=== PATIENT | female | born 1935 | race Caucasian/White ===

== ENCOUNTER 2016-09-03 13:58 | Inpatient (IN) ==
[2016-09-03] MEDS ORDERED: Ondansetron ODT 4 MG TAB.RAPDIS SL PRN (17:04)
[2016-09-03] MEDS ORDERED: Acetaminophen 325 MG TABLET PO PRN (17:04)
[2016-09-03] MEDS ORDERED: Naloxone 0.4 MG/ML INJ IVP PRN (17:04)
[2016-09-03] MEDS ORDERED: Albuterol 2.5 MG/3 ML NEBULIZER IH PRN (17:08)
[2016-09-03] MEDS ORDERED: Furosemide 40 MG/4 ML VIAL IVP SCH (17:15)
[2016-09-03] MEDS: Nicotine 21 MG PATCH.TD24 TD SCH (17:44)
--- NOTE | 2016-09-03 17:50 | Internal Med History&Physical ---
<Jolene Crabtree M - Last Filed: 09/03/16 23:02> Date of Encounter: 09/03/16 Time of Encounter: 18:00 Assessment and Plan (1) Acute CHF (congestive heart failure) Current visit: Yes Status: Acute Patient presenting with increasing shortness of breath over the last few days and BLE edema. Patient takes lasix PRN for edema at home. Last echo 10/14/15 showed Moderate LV systolic dysfunction and LVEF of 35-40%. CXR today showed moderate CHF. BNP elevated to 11,468. Continuous buckle wire inserter Lasix 40mg IVP BID cardiac diet with 1.5L fluid restriction strict I/Os Daily weights echocardiogram Cardiology consult. Qualifiers: Congestive heart failure type: systolic Qualified Code(s): I50.21 - Acute systolic (congestive) heart failure (2) Afib Current visit: Yes Status: Acute Patient with chronic afib. She is on metoprolol and diltiazem for rate and rhythm control and eliquis for anti-coagulation. Holding diltiazem for CHF exacerbation. Continue metoprolol and eliquis. Qualifiers: Atrial fibrillation type: chronic Qualified Code(s): I48.2 - Chronic atrial fibrillation (3) COPD exacerbation Current visit: Yes Status: Acute Patient reports shortness of breath and cough. Patient with bilateral wheezing in addition to rales and diminished bases on exam. Solu medrol 40mg IVP TID duoneb treatments QID albuterol nebulizer Q2hr PRN titrate oxygen to maintain saturation > 90%. (4) Smoking Current visit: Yes Status: Acute Patient reports smoking 2 PPD. Encourage smoking cessation. Patient not interested in quitting at this time. Smoking cessation and nicotine patch ordered. (5) DVT prophylaxis Current visit: Yes Status: Acute Anti-embolic stockings Patient on Eliquis for history of afib. Additional pharmacologic prophylaxis not warranted. Internal Medicine - H&P: HPI Chief complaint: shortness of breath Admitted From: Emergency Dept Plans for Post Hospital Care: Home History of present illness: Ms. John is a 81 year old female with A. fib, nonischemic cardiomyopathy, hypertension, hypothyroid, history CVA, dementia, COPD presented to [facility] today with increased shortness of breath, bilateral lower extremity edema. Patient reports that over the last several days she has been having increasing shortness of breath especially on exertion. Her lower extremities are swollen as well. She denies chest pain, headache, lightheadedness. She does endorse palpitations with activity. She denies any fever, chills or sweats. She denies any nausea vomiting or abdominal pain. She does report some diarrhea today. Evaluation at [facility] revealed elevated BNP of 11,468, her chest x-ray showed moderate CHF. She was satting 79% on room air on presentation , was started on BiPAP, given 40 mg of IV Lasix, she was also given Solu-Medrol for COPD exacerbation and DuoNeb treatments. On exam, patient alert and oriented, however somewhat confused. Patient's family reports that this is her baseline, she does have dementia and has her "good days, and bad days". Lungs had wheezes and rhonchi bilaterally and were diminished in bilateral bases. Heart had a regular rhythm with normal rate. Bilateral lower extremity with +3 pitting edema. Past Med Surg Social Fam HX - Past Medical History Medical history: atrial fibrillation, CHF, COPD, dementia, hypertension, other Psychiatric history: anxiety - Past Surgical History Surgical History: no surgical history - Social History Smoking Status: Current every day smoker Packs per day: 2 Smokeless Tobacco Status: No Alcohol use: none Drug use: none - Family History Father Living Status: Hx Family Cancer: Yes Mother Living Status: Cause of : liver disease Internal Medicine - H&P: Meds Apixaban [Eliquis] 5 mg PO BID 09/03/16 [History] Atorvastatin [Lipitor] 40 mg PO HS 09/03/16 [History] Digoxin [Lanoxin] 0.125 mg PO DAILY 09/03/16 [History] Diltiazem HCl [Cardizem Cd] 360 mg PO DAILY 09/03/16 [History] Furosemide [Lasix] 20 mg PO DAILY PRN 09/03/16 [History] Lisinopril [Zestril] 5 mg PO DAILY 09/03/16 [History] Metoprolol Tartrate [Lopressor] 50 mg PO BID 09/03/16 [History] Potassium Chloride [Klor-Con 10] 10 meq PO DAILY PRN 09/03/16 [History] Allergies Penicillins Allergy (Verified 09/03/16 16:38) See Comments All Systems PM: A 10-system review of systems was performed and is negative for pertinent findings except as documented above in the HPI. - Constitutional Constitutional: no chills, no fever(s), no night sweats - EENT Eyes: no change in vision, no discharge, no pain, no photophobia Ears: no ear discharge, no ear pain, no tinnitus Nose, mouth and throat: no dysphagia, no nasal discharge, no neck pain, no sore throat - Cardiovascular Cardiovascular ROS IM: dyspnea on exertion, palpitations, no chest pain, no diaphoresis, no dyspnea, no lightheadedness, no syncope - Respiratory Respiratory: cough, dyspnea on exertion, excessive phlegm production, no dyspnea , no wheezing - Gastrointestinal Gastrointestinal: no abdominal pain, no diarrhea, no hematemesis, no hematochezia, no melena, no nausea, no vomiting - Genitourinary Genitourinary: no change in urinary stream, no dysuria, no flank pain, no hematuria - Musculoskeletal Musculoskeletal ROS IM: no numbness, no tingling - Integumentary Integumentary IM: no rash, no unusual bruising - Neurological Neurological ROS: no confusion, no convulsions, no focal weakness, no numbness, no tingling, no tremor(s) - Hematologic/Lymphatic Hematologic/Lymphatic: no easy bruising - Constitutional Vitals: Temp Pulse Resp BP Pulse Ox 97.6 F 53 20 100/69 92 09/03/16 16:29 09/03/16 15:47 09/03/16 15:47 09/03/16 15:47 09/03/16 16:30 General appearance: Present: A&O X 3, pleasant, no acute distress - Head Head exam: Present: atraumatic, normocephalic - Eye Eye exam: Present: PERRL, conjuntiva pink, sclera anicteric Pupils: Present: PERRL - Neck Neck exam general surgery: Present: supple, trachea midline. Absent: lymphadenopathy - Respiratory Respiratory exam: Present: decreased breath sounds, rhonchi, wheezes. Absent: accessory muscle use, rales - Cardiovascular Cardiovascular exam: Present: irregular rhythm, +S1, +S2. Absent: diastolic murmur, gallop, rubs, systolic murmur - GI/Abdominal GI/Abdominal exam: Present: normal bowel sounds, soft, no peritoneal signs. Absent: distended, tenderness - Extremities Exam Extremities exam: Present: warm, radial pulses palpable and symetrical. Absent : calf tenderness, cyanotic, pedal edema - Neurological Exam Neurological exam: Present: CN II-XII intact, oriented X3, no focal deficits. Absent: facial droop, speech deficit - Skin Skin exam: Present: dry, intact Internal Med - H&P Results - Labs Labs: Labs from [facility]: WBC 9.9 Hgb 13.7 Hct 40.2 Plt 189 Na 140 K 4.3 Cl 102 CO2 27 BUN 20 Cr 1.38 D-dimer 492 BNP 11,468 Trop < 0.05 <Paul Bass - Last Filed: 09/04/16 07:13> Date of Encounter: 09/04/16 Internal Medicine - H&P: HPI History of present illness: Ms. John is a 81 year old female All Systems PM: A 10-system review of systems was performed and is negative for pertinent findings except as documented above in the HPI. - Constitutional Vitals: Temp Pulse Resp BP Pulse Ox 97.7 F 98 16 119/58 92 09/04/16 06:42 09/04/16 06:42 09/04/16 06:42 09/04/16 06:42 09/04/16 06:42 Internal Med - H&P Results - Labs CBC & Chem 7: 09/04/16 01:13 09/04/16 01:13 Labs: Short CBC 09/04/16 Range/Units 01:13 WBC 8.5 (4.3-11.1) K/mcL Hgb 12.2 (11.5-15.4) g/dL Hct 38.7 (35.3-44.9) % Plt Count 172 (140-400) K/mcL Neutrophils # 8.1 (1.6-8.9) K/mcL BMP 09/04/16 01:13 Sodium 140 Potassium 4.2 Chloride 103 Carbon Dioxide 27 BUN 29 H Creatinine 1.61 H Glucose 320 H Calcium 9.9 Cardiac Enzymes 09/03/16 09/04/16 Range/Units 19:42 01:13 Troponin I 0.01 0.01 (0-0.03) ng/mL - ABG Interpretation ABG results: 09/03/16 22:10 ABG pH 7.36 ABG pCO2 58 H ABG pO2 84 L ABG HCO3 32.8 H ABG Total CO2 34.6 H ABG O2 Saturation 96 ABG Base Excess 5.7 H - Attending Attestation I saw and examined pt. I have discussed with BAGGING SALVAGER regarding management plan. Agree with the documentation.
[2016-09-03] MEDS: Ipratropium/Albuterol Neb 3 ML IH SCH ×2 (19:36→22:48)
--- NOTE | 2016-09-03 19:38 | Event Note ---
Date of Encounter: 09/03/16 Time of Encounter: 18:00 I saw and examined pt. I discussed with FENCE INSTALLER regarding management plan. Pt has CHF exacerbation with elevated BNP and CXR shows congestion. Improved after iv lasix. Will cont lasix iv, strict I/O, echocardiogram placed. Will ask cardio consult. Cont supportive treatment. A Fib rate is well controlled, cont Eliquis for anticoagulation.
[2016-09-03] MEDS: Budesonide/Formoterol 160/4.5 MDI IH SCH ×2 (20:17→20:22)
[2016-09-03 22:25] LABS: ABG Base Excess 5.7 mEq/L (-2.0 to 3.0); ABG HCO3 32.8 mEQ/L (21-27); ABG Oxygen Saturation 96 % (95-98); ABG PCO2 58 mmHg (35-45); ABG PH 7.36 pH Units (7.32-7.45); ABG PO2 84 mmHg (85-104); ABG TCO2 34.6 mEq/L (20-26)
[2016-09-03 22:26] LABS: Blood Gas FiO2 36 %
[2016-09-04] MEDS ORDERED: MethylPREDNISolone 40 MG/ML VIAL IVP SCH
[2016-09-04] MEDS: APIXABAN 5 MG TABLET PO SCH ×3 (00:19→20:31)
[2016-09-04 01:57] LABS: Hematocrit 38.7 % (35.3-44.9); Hemoglobin 12.2 g/dL (11.5-15.4); Immature Granulocytes % 0.2 % (0-4); Lymphocytes # 0.3 K/mcL (0.6-4.6); Lymphocytes % 3.3 %; Mean Corpuscular HGB Conc 31.5 g/dL (31.6-35.5); Mean Corpuscular Hemoglobin 28.6 pg (28.0-33.3); Mean Corpuscular Volume 90.6 fL (83.0-100.0); Mean Platelet Volume 12.5 fL (9.4-12.4); Monocytes # 0.1 K/mcL (0.0-1.3); Monocytes % 0.9 %; Neutrophils # 8.1 K/mcL (1.6-8.9); Platelet Count 172 K/mcL (140-400); Red Blood Count 4.27 M/mcL (3.82-4.97); Segmented Neutrophils % 95.6 %
[2016-09-04 02:15] LABS: Calcium 9.9 mg/dL (8.6-10.8); Chol/HDL Ratio 3.3 (0-4.9); Potassium 4.2 mEq/L (3.5-4.5)
[2016-09-04] MEDS ORDERED: Haloperidol Lactate 5 MG/ML VIAL IVP ONE (04:04)
[2016-09-04] MEDS: Ipratropium/Albuterol Neb 3 ML IH SCH ×2 (04:25→10:46)
[2016-09-04] MEDS: Budesonide/Formoterol 160/4.5 MDI IH SCH (10:46)
--- NOTE | 2016-09-04 11:12 | Internal Med Progress Note ---
Date of Encounter: 09/04/16 Time of Encounter: 11:09 - Assessment and plan (1) Acute CHF (congestive heart failure) Current Visit: Yes Status: Acute Assessment and plan: Acute decompensated CHF 2D echo reported LVEF of 40% with mild concentric LVH, moderate global LV systolic dysfunction, severely dilated LA, severely dilated RA, mild aortic regurgitation, moderate to severe TR, moderate pulmonary hypertension increased Lasix 40mg IV to q8h O2 supplementation and bipap support cardiology evaluation requested monitor I/Os fluid restriction diet monitor daily weights will closely monitor respiratory status Qualifiers: Congestive heart failure type: systolic Qualified Code(s): I50.21 - Acute systolic (congestive) heart failure (2) COPD (chronic obstructive pulmonary disease) Current Visit: Yes Status: Acute Assessment and plan: Given clinical presentation, acute respiratory failure appears to be secondary to CHF decompensation will d/c systemic steroids continue bronchodilator support as needed patient will benefit from pulmonary evaluation as outpatient Qualifiers: COPD type: unspecified COPD Qualified Code(s): J44.9 - Chronic obstructive pulmonary disease, unspecified (3) Diabetes mellitus Current Visit: Yes Status: Acute Assessment and plan: Newly diagnosed Diabetes HbA1c: 6.5 will provide patient and family with diabetic education started sliding scale insulin algorithm monitor fingerstick and blood glucose Qualifiers: Diabetes mellitus type: type 2 Diabetes mellitus complication status: with unspecified complications Diabetes mellitus group home insulin use: without group home use Qualified Code(s): E11.8 - Type 2 diabetes mellitus with unspecified complications (4) Afib Current Visit: Yes Status: Chronic Assessment and plan: Currently noted to be in Afib with RVR Cardizem restarted by cardiology continue BB anticoagulation with Eliquis will continue tele monitoring Qualifiers: Atrial fibrillation type: paroxysmal Qualified Code(s): I48.0 - Paroxysmal atrial fibrillation (5) DVT prophylaxis Current Visit: Yes Status: Acute Assessment and plan: anticoagulated with Eliquis (6) Smoking Current Visit: Yes Status: Acute Assessment and plan: smoking cessation counseling provided nicotine supplementation provided - Subjective Interval history: Patient seen and examined with daughter present at bedside. Pt sitting on the side of the bed, easily falling asleep but able to participate in conversation. Pt has underlying dementia and her mental status waxes and wanes, currently mental status at baseline, AAO x 1 (self and family). She reports of feeling better since her arrival to the ER. Pt reported of not be on home oxygen and smoking 1-2packs of cigarettes daily. I had a detailed discussion with the daughter in regards to patient's advance directives. The daughter states her mother does not want to be intubated however she has not said much about cardiac resuscitation. Patient does not have a living will, nor does she have an appointed POA. The daughter present at bedside is the 2nd eldest out of 4 siblings. Daughter is educated on the need to have a family discussion and collaboratively come up with a code status as per the patient's wishes. The daughter is to have a family discussion and will inform the medical staff. She requests, if the patient's respiratory status deteriorates, a family member be called, prior to intubation. - Constitutional Vitals: Temp Pulse Resp BP Pulse Ox 97.7 F 98 20 119/58 94 09/04/16 06:42 09/04/16 06:42 09/04/16 10:47 09/04/16 06:42 09/04/16 10:47 General appearance: Present: A&O X 2, pleasant, no acute distress - Head Head exam: Present: atraumatic, normocephalic - Eye Eye exam: Present: conjuntiva pink, sclera anicteric - Respiratory Respiratory exam: Absent: wheezes (diffuse bilateral crackles) - Cardiovascular Cardiovascular exam: Present: irregular rhythm, +S1, +S2, tachycardia. Absent: diastolic murmur, systolic murmur - GI/Abdominal GI/Abdominal exam: Present: normal bowel sounds, soft, no peritoneal signs. Absent: distended, tenderness - Extremities Exam Extremities exam: Present: pedal edema, warm, radial pulses palpable and symetrical. Absent: calf tenderness - Neurological Exam Neurological exam: Present: alert - Psychiatric Psychiatric exam: Present: normal affect, normal mood Internal Medicine: Result - Labs CBC & Chem 7: 09/04/16 01:13 09/04/16 01:13 Labs: Short CBC 09/04/16 Range/Units 01:13 WBC 8.5 (4.3-11.1) K/mcL Hgb 12.2 (11.5-15.4) g/dL Hct 38.7 (35.3-44.9) % Plt Count 172 (140-400) K/mcL Neutrophils # 8.1 (1.6-8.9) K/mcL BMP 09/04/16 01:13 Sodium 140 Potassium 4.2 Chloride 103 Carbon Dioxide 27 BUN 29 H Creatinine 1.61 H Glucose 320 H Calcium 9.9 Cardiac Enzymes 09/03/16 09/04/16 Range/Units 19:42 01:13 Troponin I 0.01 0.01 (0-0.03) ng/mL - ABG Interpretation ABG results: ABG ABG pH 7.36 pH Units (7.32-7.45) 09/03/16 22:10 ABG pCO2 58 mmHg (35-45) H 09/03/16 22:10 ABG pO2 84 mmHg (85-104) L 09/03/16 22:10 ABG O2 Saturation 96 % (95-98) 09/03/16 22:10 Consult Discharge Plan - Plan Referrals: Boston Godoy MD [Primary Care Provider] -
--- NOTE | 2016-09-04 11:21 | Cardiology Consult Note ---
Date of Encounter: 09/04/16 Time of Encounter: 11:16 Assessment and Plan (1) Acute CHF (congestive heart failure) Current Visit: Yes Status: Acute Acute on chronic CHF exacerbation with worsening dyspnea and lower extremity edema over recent days. BNP 11,468 at [facility] with CXR showing CHF. Known EF 40%. Echo today unchanged EF. Currently on IV Lasix 40mg D0uimsm. Renal function worse from baseline--1.61. Recommend monitoring closely. Recommend strict I/Os, Na and fluid restriction, daily weights. Qualifiers: Congestive heart failure type: systolic Qualified Code(s): I50.21 - Acute systolic (congestive) heart failure (2) Afib Current Visit: Yes Status: Chronic Known hx of A-Fib, anticoagulated on Eliquis. At home, pt is on Cardizem CD 360mg daily, Digoxin 125mcg daily, Lopressor 50mg BID. Cardizem was stopped on admission and now pt is RVR, HR 120s at bedside. Will give one dose of IV Cardizem 10mg then resume 360mg daily of Cardizem CD. Continue Eliquis. Qualifiers: Atrial fibrillation type: paroxysmal Qualified Code(s): I48.0 - Paroxysmal atrial fibrillation (3) NICM (nonischemic cardiomyopathy) Current Visit: Yes Status: Chronic Mild CAD on [facility] in 2013 EF 40%, unchanged. Continue BB and TINO-I. Discussion w patient/family: The assessment and plan as outlined above was discussed with the patient and/or family members who expressed understanding and agreement. All questions were answered. Thank you for involving us in the care of your patient. Please call with any questions. I will discuss all the above with Dr. Michelle and make changes as necessary. History of Present Illness Consult date: 09/04/16 Requesting physician: Paul Bass Consult reason: CHF exacerbation Chief complaint: dyspnea, lower extremity edema History of present illness: Ms. John is a 81 year old female with PMH of A. fib on Eliquis, nonischemic cardiomyopathy with known EF 35-40%, hypertension, hypothyroid, history CVA, dementia, COPD presented to [facility] initially with increased shortness of breath, bilateral lower extremity edema. Patient reports that over the last several days she has been having increasing shortness of breath especially on exertion. Her lower extremities are swollen as well. She denies chest pain, headache, lightheadedness. She does endorse palpitations with activity. Evaluation at [facility] revealed elevated BNP of 11,468, her chest x-ray showed moderate CHF. She was satting 79% on room air on presentation, was started on BiPAP, given 40 mg of IV Lasix, she was also given Solu-Medrol for COPD exacerbation and DuoNeb treatments. Troponin negative x 2. Pt reports feeling better today. Breathing and lower extremity edema are both improved. Echo resulted--EF 40%, mild LVH, moderate global systolic dysfunction, severely dilated left and right atria, mild AR, mild-moderate MR, moderate-severe TR, moderate phtn. Previous CV testing: [facility] 08/2013: LMCA 15% stenosis, pLAD 25%, pLCx 35%, OM1 90%, pRCA 40% and mRCA 35 %. Medical therapy recommended. Echo 10/14/15: EF 35-40%, indeterminate diastolic function, mild concentric LVH, mild RV hypokinesis, severe LA enlargement, mild RA enlargement, mild AI, mild- moderate MR/TR, mild phtn. Holter 05/17/16: Baseline rhythm A-Fib, AVG HR 75bpm, occasional PVCs. Past Med Surg Social Fam HX - Past Medical History Medical history: atrial fibrillation, CHF, COPD, coronary artery disease, dementia, hypertension, other Psychiatric history: anxiety - Past Surgical History Surgical History: no surgical history - Social History Smoking Status: Current every day smoker Packs per day: 2 Smokeless Tobacco Status: No Alcohol use: none Drug use: none - Family History Father Living Status: Hx Family Cancer: Yes Mother Living Status: Cause of : liver disease Medications and Allergies Apixaban [Eliquis] 5 mg PO BID 09/03/16 [History] Atorvastatin [Lipitor] 40 mg PO HS 09/03/16 [History] Digoxin [Lanoxin] 0.125 mg PO DAILY 09/03/16 [History] Diltiazem HCl [Cardizem Cd] 360 mg PO DAILY 09/03/16 [History] Furosemide [Lasix] 20 mg PO DAILY PRN 09/03/16 [History] Lisinopril [Zestril] 5 mg PO DAILY 09/03/16 [History] Metoprolol Tartrate [Lopressor] 50 mg PO BID 09/03/16 [History] Potassium Chloride [Klor-Con 10] 10 meq PO DAILY PRN 09/03/16 [History] Allergies Penicillins Allergy (Verified 09/03/16 16:38) See Comments All Systems Review: A 10-system review of systems was performed and is negative for pertinent findings except as documented above in the HPI. - Cardiovascular Cardiovascular: as per HPI, dyspnea at rest, dyspnea on exertion, leg edema Physical Examination Vital Signs, Last 4 Hours Resp Pulse Ox 09/04/16 10:47 20 94 Vital Signs Temp Pulse Resp BP Pulse Ox 09/04/16 10:47 20 94 09/04/16 06:42 97.7 F 98 16 119/58 92 09/04/16 05:02 18 93 09/04/16 03:44 97.8 F 87 20 135/64 92 09/04/16 00:26 97.5 F L 79 20 104/53 94 09/03/16 22:48 20 94 09/03/16 21:30 93 09/03/16 21:28 97.8 F 78 16 102/58 95 09/03/16 20:18 18 92 09/03/16 16:30 92 09/03/16 16:29 97.6 F 09/03/16 15:47 53 20 100/69 91 Intake and Output 09/03/16 09/04/16 09/04/16 23:59 07:59 15:59 Intake Total 0 / 0 120 / 120 60 / 60 Output Total 1350 / 1350 Balance 0 / 0 -1230 / -1230 60 / 60 Intake: Oral 0 / 0 120 / 120 60 / 60 Output: Catheter 1350 / 1350 Other: Meal Breakfast Percent of Meal Consumed 50% # Voids 0 Weight 65.8 kg 65.5 kg Patient Weight 09/04/16 23:59 Weight 65.5 kg General: Conversant, No Apparent Distress HEENT: Atraumatic, Normocephaly, Mucus Membranes Moist Neck: Normal carotid pulses Cardiac: Other (irregularly irregular) Lungs: Other (rhonchi noted) Neuro: Alert and responsive, Other (confused at times) Abdomen: Soft, Non-Tender Skin: No rashes noted on visualized skin Musculoskeletal: No Chest Wall Tenderness Extremities: Other (+2 BLE edema) Results 09/04/16 01:13 09/04/16 01:13 Lab Results 09/03/16 09/04/16 09/04/16 19:42 01:13 01:13 WBC 8.5 Hgb 12.2 Hct 38.7 Plt Count 172 Sodium Potassium Chloride Carbon Dioxide BUN Creatinine Glucose Calcium Troponin I 0.01 0.01 09/04/16 01:13 WBC Hgb Hct Plt Count Sodium 140 Potassium 4.2 Chloride 103 Carbon Dioxide 27 BUN 29 H Creatinine 1.61 H Glucose 320 H Calcium 9.9 Troponin I Short CBC 09/04/16 Range/Units 01:13 WBC 8.5 (4.3-11.1) K/mcL Hgb 12.2 (11.5-15.4) g/dL Hct 38.7 (35.3-44.9) % Plt Count 172 (140-400) K/mcL Neutrophils # 8.1 (1.6-8.9) K/mcL BMP 09/04/16 Range/Units 01:13 Sodium 140 (136-145) mEq/L Potassium 4.2 (3.5-4.5) mEq/L Chloride 103 (98-109) mEq/L Carbon Dioxide 27 (19-29) mEq/L BUN 29 H (7-20) mg/dL Creatinine 1.61 H (0.57-1.11) mg/dL Glucose 320 H (70-99) mg/dL Calcium 9.9 (8.6-10.8) mg/dL Cardiac Enzymes 09/04/16 09/03/16 Range/Units 01:13 19:42 Troponin I 0.01 0.01 (0-0.03) ng/mL Active Medications Acetaminophen (Tylenol) 650 mg PO Q6HR PRN PRN Reason: Mild Pain (1-3) Stop: 03/05/17 17:05 Albuterol Sulfate (Proventil Neb) 2.5 mg IH Q2H PRN PRN Reason: Shortness Of Breath/Wheezing Stop: 03/05/17 17:09 Last Admin: 09/03/16 20:18 Dose: 2.5 mg Albuterol/Ipratropium (Duoneb) 3 ml IH QIDR [facility] Stop: 03/05/17 17:16 Last Admin: 09/04/16 10:46 Dose: 3 ml Apixaban (Eliquis) 5 mg PO BID [facility] Stop: 03/05/17 21:01 Last Admin: 09/04/16 00:19 Dose: Not Given Atorvastatin Calcium (Lipitor) 40 mg PO HS [facility] Stop: 03/05/17 21:01 Last Admin: 09/04/16 00:19 Dose: Not Given Budesonide/Formoterol Fumarate (Symbicort) 2 puff IH BIDR [facility] Stop: 03/05/17 22:01 Last Admin: 09/04/16 10:46 Dose: 2 puff Digoxin (Lanoxin) 0.125 mg PO DAILY [facility] Stop: 03/06/17 09:01 Docusate Sodium (Colace) 100 mg PO BID PRN PRN Reason: Constipation Stop: 03/05/17 17:05 Furosemide (Lasix) 40 mg IVP BIDDIURETIC [facility] Stop: 03/05/17 17:16 Last Admin: 09/03/16 17:44 Dose: 40 mg Methylprednisolone (Solu-Medrol) 40 mg IVP Q8HR [facility] Stop: 03/06/17 00:01 Last Admin: 09/04/16 01:17 Dose: 40 mg Metoprolol Tartrate (Lopressor) 50 mg PO BID [facility] Stop: 03/05/17 21:01 Last Admin: 09/04/16 00:19 Dose: Not Given Naloxone HCl (Narcan) 0.4 mg IVP Q2MIN PRN PRN Reason: Opioid Reversal Stop: 03/05/17 17:05 Nicotine (Nicoderm) 21 mg TD DAILY [facility] Stop: 03/05/17 17:16 Last Admin: 09/03/16 17:44 Dose: Not Given Ondansetron HCl (Zofran Odt) 4 mg SL Q8HR PRN PRN Reason: Nausea And Vomiting Stop: 03/05/17 17:05 Potassium Chloride (Potassium Chloride) 10 meq PO DAILY PRN PRN Reason: WITH LASIX - Imaging and Cardiology Echo: report reviewed Cardiac cath: report reviewed Holter: report reviewed - EKG Interpretation EKG results cardiology: personally reviewed (SR, rate 60), other (12 hr tele AVG HR 92, now A-Fib. Rate 120s at bedside.) Consult Discharge Plan - Plan Referrals: Boston Godoy MD [Primary Care Provider] -
[2016-09-04] MEDS ORDERED: *HR* Metoprolol 5 MG/5 ML VIAL IVP PRN (11:28)
[2016-09-04] MEDS ORDERED: Ipratropium/Albuterol Neb 3 ML IH PRN (11:29)
[2016-09-04] MEDS ORDERED: Furosemide 40 MG/4 ML VIAL IVP SCH (11:30)
[2016-09-04] MEDS: *HR* Digoxin 0.125 MG TABLET PO SCH (12:17)
[2016-09-04] MEDS: Diltiazem CD (24hr) 180 MG CAPSULE PO SCH (12:17)
[2016-09-04] MEDS: Nicotine 21 MG PATCH.TD24 TD SCH (12:18)
[2016-09-04 12:47] LABS: Hemoglobin A1C 6.5 %
[2016-09-04] MEDS ORDERED: *HR* Dextrose 50 % in Water (Syg) 50 ML SYRINGE IVP PRN (12:48)
[2016-09-04] MEDS ORDERED: Dextrose Gel 15 GM PO PRN ×2 (12:48)
[2016-09-04] MEDS ORDERED: D5% in Water 1,000 ML IVC PRN (12:48)
[2016-09-04] MEDS: Furosemide 40 MG/4 ML VIAL IVP SCH (17:15)
[2016-09-04] MEDS: Insulin LISPRO 300 UNITS/3 ML VIAL SQ SCH ×2 (17:15→20:32)
[2016-09-05 06:08] LABS: Basophils % 0.1 %; Hematocrit 43.4 % (35.3-44.9); Hemoglobin 13.6 g/dL (11.5-15.4); Immature Granulocytes % 0.5 % (0-4); Lymphocytes # 0.5 K/mcL (0.6-4.6); Lymphocytes % 3.4 %; Mean Corpuscular HGB Conc 31.3 g/dL (31.6-35.5); Mean Corpuscular Volume 92.5 fL (83.0-100.0); Mean Platelet Volume 12.6 fL (9.4-12.4); Monocytes # 1.2 K/mcL (0.0-1.3); Monocytes % 8.2 %; Neutrophils # 13.2 K/mcL (1.6-8.9); Platelet Count 213 K/mcL (140-400); Red Blood Count 4.69 M/mcL (3.82-4.97); Red Cell Distribution Width 16.2 % (11.5-14.5); Segmented Neutrophils % 87.8 %
[2016-09-05 06:26] LABS: Calcium 9.9 mg/dL (8.6-10.8); Magnesium 2.1 mg/dL (1.6-2.6); Phosphorous 3.4 mg/dL (2.3-4.7); Potassium 4.8 mEq/L (3.5-4.5)
[2016-09-05] MEDS: Insulin LISPRO 300 UNITS/3 ML VIAL SQ SCH ×4 (08:16→21:24)
[2016-09-05] MEDS: Furosemide 40 MG/4 ML VIAL IVP SCH ×2 (08:20→16:10)
[2016-09-05] MEDS: Nicotine 21 MG PATCH.TD24 TD SCH (08:20)
[2016-09-05] MEDS: Diltiazem CD (24hr) 180 MG CAPSULE PO SCH (08:21)
[2016-09-05] MEDS: APIXABAN 5 MG TABLET PO SCH ×2 (08:21→21:23)
[2016-09-05] MEDS: *HR* Digoxin 0.125 MG TABLET PO SCH (08:22)
--- NOTE | 2016-09-05 11:00 | Internal Med Progress Note ---
Date of Encounter: 09/05/16 Time of Encounter: 10:59 - Assessment and plan (1) Acute CHF (congestive heart failure) Current Visit: Yes Status: Acute Assessment and plan: Acute decompensated CHF 2D echo reported LVEF of 40% with mild concentric LVH, moderate global LV systolic dysfunction, severely dilated LA, severely dilated RA, mild aortic regurgitation, moderate to severe TR, moderate pulmonary hypertension continue Lasix 40mg IV to q8h O2 supplementation and bipap support cardiology evaluation appreciated monitor I/Os fluid restriction diet monitor daily weights will closely monitor respiratory status Qualifiers: Congestive heart failure type: systolic Qualified Code(s): I50.21 - Acute systolic (congestive) heart failure (2) COPD (chronic obstructive pulmonary disease) Current Visit: Yes Status: Acute Assessment and plan: not in acute exacerbation continue bronchodilator support as needed patient will benefit from pulmonary evaluation as outpatient Qualifiers: COPD type: unspecified COPD Qualified Code(s): J44.9 - Chronic obstructive pulmonary disease, unspecified (3) Diabetes mellitus Current Visit: Yes Status: Acute Assessment and plan: Newly diagnosed Diabetes HbA1c: 6.5 will provide patient and family with diabetic education continue sliding scale insulin algorithm monitor fingerstick and blood glucose Qualifiers: Diabetes mellitus type: type 2 Diabetes mellitus complication status: with unspecified complications Diabetes mellitus manager long term care insulin use: without shelter use Qualified Code(s): E11.8 - Type 2 diabetes mellitus with unspecified complications (4) Afib Current Visit: Yes Status: Chronic Assessment and plan: Rate controlled with Cardizem and BB anticoagulation with Eliquis will continue tele monitoring Qualifiers: Atrial fibrillation type: paroxysmal Qualified Code(s): I48.0 - Paroxysmal atrial fibrillation (5) DVT prophylaxis Current Visit: Yes Status: Acute Assessment and plan: anticoagulated with Eliquis (6) Smoking Current Visit: Yes Status: Acute Assessment and plan: smoking cessation counseling provided nicotine supplementation provided (7) UTI (urinary tract infection) Current Visit: Yes Status: Acute Assessment and plan: UA concerning for UTI Will start Levaquin 500mg IV qd f/u urine cultures leukocytosis can be secondary to UTI and recent steroid use Qualifiers: Urinary tract infection type: site unspecified Hematuria presence: with hematuria Qualified Code(s): N39.0 - Urinary tract infection, site not specified; R31.9 - Hematuria, unspecified - Subjective Interval history: Patient seen and examined with daughter(Coreen Staples) present at bedside. Pt currently saturating well on nasal cannula, noted to have good urine output but remains drowsy. She is easily arousable. Her urine is noted to be muddy brown and UA concerning for UTI. I had a detailed discussion with patient's daughter(Coreen Staples) in regards to her advance directives. As per the daughter, the patient has explicitly told them in the past that she does not want to be on a ventilator, nor does she want any broken ribs from chest compression. Ms. Staples states that as per her family's (all four siblings) consensus patient is to be DNR/DNI. - Constitutional Vitals: Temp Pulse Resp BP Pulse Ox 97.9 F 80 22 118/78 89 09/05/16 06:58 09/05/16 06:58 09/05/16 06:58 09/05/16 06:58 09/05/16 06:58 General appearance: Present: A&O X 1 (self and family), pleasant, no acute distress - Head Head exam: Present: atraumatic, normocephalic - Eye Eye exam: Present: conjuntiva pink, sclera anicteric - Respiratory Respiratory exam: Absent: respiratory distress, wheezes (diffuse rales) - Cardiovascular Cardiovascular exam: Present: RRR, +S1, +S2. Absent: diastolic murmur, gallop, rubs, systolic murmur - GI/Abdominal GI/Abdominal exam: Present: normal bowel sounds, soft, no peritoneal signs. Absent: distended, tenderness - Extremities Exam Extremities exam: Present: pedal edema, warm, radial pulses palpable and symetrical. Absent: calf tenderness - Neurological Exam Neurological exam: Present: alert, oriented X3 - Psychiatric Psychiatric exam: Present: normal affect, normal mood Internal Medicine: Result - Labs CBC & Chem 7: 09/05/16 05:35 09/05/16 05:35 Labs: Short CBC 09/05/16 Range/Units 05:35 WBC 15.0 H D (4.3-11.1) K/mcL Hgb 13.6 (11.5-15.4) g/dL Hct 43.4 (35.3-44.9) % Plt Count 213 (140-400) K/mcL Neutrophils # 13.2 H (1.6-8.9) K/mcL BMP 09/05/16 05:35 Sodium 141 Potassium 4.8 H Chloride 102 Carbon Dioxide 33 H BUN 44 H D Creatinine 1.40 H Glucose 140 H Calcium 9.9 - ABG Interpretation ABG results: ABG ABG pH 7.36 pH Units (7.32-7.45) 09/03/16 22:10 ABG pCO2 58 mmHg (35-45) H 09/03/16 22:10 ABG pO2 84 mmHg (85-104) L 09/03/16 22:10 ABG O2 Saturation 96 % (95-98) 09/03/16 22:10 - Impressions Impressions Chest X-Ray 09/05/16 07:31 IMPRESSION: 1. Interstitial edema. 2. Mild enlargement of the cardiac silhouette, stable. 3. Small bilateral pleural effusions. D/ / Lionel De La Torre MD / Lionel De La Torre MD Interpreting Provider: Lionel De La Torre MD - VTE Documentation of Mechanical Device: Intermittent pneumatic compression device Consult Discharge Plan - Plan Referrals: Boston Godoy MD [Primary Care Provider] -
[2016-09-05 11:56] LABS: Bilirubin,Urine Negative (Negative); Blood,Urine Large (Negative); Clarity,Urine Clear (Clear); Color,Urine Yellow (Yellow); Glucose,Urine (UA) Normal (Normal); Ketones,Urine Negative (Negative); Leukocyte Esterase,Urine Trace (Negative); Nitrite,Urine Negative (Negative); PH,Urine 5.5 pH Units (5.0-8.0); Protein,Urine Negative (Neg-Trace); Specific Gravity,Urine 1.009 (1.010-1.025); Urobilinogen,Urine Normal (Normal)
[2016-09-05 11:59] LABS: Bacteria,Urine Moderate per hpf (None-Few); Hyaline Casts,Urine None Seen per lpf (None-Few); RBC,Urine TNTC per hpf (0-3); Squamous Epithelial Cell,Urine Few per lpf (None-Few)
[2016-09-05] MEDS ORDERED: Levofloxacin 500 MG/100 ML 500 MG/100 ML BAG IVPB SCH (13:00)
[2016-09-05] MEDS: Sennosides/Docusate Sodium TABLET PO SCH (21:23)
[2016-09-05] MEDS ORDERED: traZODone 50 MG TABLET PO PRN (21:37)
[2016-09-05] MEDS ORDERED: OLANZapine 10 MG VIAL IM ONE (23:44)
[2016-09-06 06:08] LABS: Basophils % 0.1 %; Hematocrit 44.4 % (35.3-44.9); Hemoglobin 13.9 g/dL (11.5-15.4); Immature Granulocytes % 0.4 % (0-4); Lymphocytes # 1.2 K/mcL (0.6-4.6); Lymphocytes % 7.9 %; Mean Corpuscular HGB Conc 31.3 g/dL (31.6-35.5); Mean Corpuscular Hemoglobin 28.1 pg (28.0-33.3); Mean Corpuscular Volume 89.9 fL (83.0-100.0); Mean Platelet Volume 11.6 fL (9.4-12.4); Monocytes # 1.3 K/mcL (0.0-1.3); Monocytes % 8.9 %; Neutrophils # 12.4 K/mcL (1.6-8.9); Platelet Count 217 K/mcL (140-400); Red Blood Count 4.94 M/mcL (3.82-4.97); Red Cell Distribution Width 16.1 % (11.5-14.5); Segmented Neutrophils % 82.7 %
[2016-09-06 06:25] LABS: Calcium 9.9 mg/dL (8.6-10.8); Magnesium 1.8 mg/dL (1.6-2.6); Phosphorous 2.8 mg/dL (2.3-4.7); Potassium 4.1 mEq/L (3.5-4.5)
[2016-09-06] MEDS: Insulin LISPRO 300 UNITS/3 ML VIAL SQ SCH ×4 (07:38→22:35)
[2016-09-06] MEDS: APIXABAN 5 MG TABLET PO SCH ×2 (10:21→22:35)
[2016-09-06] MEDS: Diltiazem CD (24hr) 180 MG CAPSULE PO SCH (10:22)
[2016-09-06] MEDS: *HR* Digoxin 0.125 MG TABLET PO SCH (10:23)
[2016-09-06] MEDS: Sennosides/Docusate Sodium TABLET PO SCH ×2 (10:23→22:35)
[2016-09-06] MEDS: Nicotine 21 MG PATCH.TD24 TD SCH (10:23)
[2016-09-06] MEDS: Furosemide 40 MG/4 ML VIAL IVP SCH ×2 (10:25→17:35)
[2016-09-06] MEDS: Levofloxacin 250 MG/50 ML 250 MG/50 ML BAG IVPB SCH (10:25)
[2016-09-06] MEDS: Ipratropium/Albuterol Neb 3 ML IH SCH ×3 (10:56→23:50)
--- NOTE | 2016-09-06 11:50 | Internal Med Progress Note ---
Date of Encounter: 09/06/16 Time of Encounter: 11:48 - Assessment and plan (1) Acute CHF (congestive heart failure) Current Visit: Yes Status: Acute Assessment and plan: Acute decompensated CHF 2D echo reported LVEF of 40% with mild concentric LVH, moderate global LV systolic dysfunction, severely dilated LA, severely dilated RA, mild aortic regurgitation, moderate to severe TR, moderate pulmonary hypertension continue Lasix 40mg IV q12h O2 supplementation and bipap support cardiology evaluation appreciated monitor I/Os fluid restriction diet monitor daily weights will closely monitor respiratory status PT/OT evaluation requested Qualifiers: Congestive heart failure type: systolic Qualified Code(s): I50.21 - Acute systolic (congestive) heart failure (2) COPD (chronic obstructive pulmonary disease) Current Visit: Yes Status: Acute Assessment and plan: not in acute exacerbation continue bronchodilator support as needed patient will benefit from pulmonary evaluation as outpatient Qualifiers: COPD type: unspecified COPD Qualified Code(s): J44.9 - Chronic obstructive pulmonary disease, unspecified (3) Diabetes mellitus Current Visit: Yes Status: Acute Assessment and plan: Newly diagnosed Diabetes HbA1c: 6.5 continue sliding scale insulin algorithm monitor fingerstick and blood glucose Qualifiers: Diabetes mellitus type: type 2 Diabetes mellitus complication status: with unspecified complications Diabetes mellitus termite exterminator helper insulin use: without termite exterminator helper use Qualified Code(s): E11.8 - Type 2 diabetes mellitus with unspecified complications (4) Afib Current Visit: Yes Status: Chronic Assessment and plan: Rate controlled with Cardizem and BB anticoagulation with Eliquis will continue tele monitoring Qualifiers: Atrial fibrillation type: paroxysmal Qualified Code(s): I48.0 - Paroxysmal atrial fibrillation (5) DVT prophylaxis Current Visit: Yes Status: Acute Assessment and plan: anticoagulated with Eliquis (6) Smoking Current Visit: Yes Status: Acute Assessment and plan: smoking cessation counseling provided nicotine supplementation provided (7) UTI (urinary tract infection) Current Visit: Yes Status: Acute Assessment and plan: UA concerning for UTI contine Levaquin 500mg IV qd f/u official urine cultures, prelim positive for Gram negative rods leukocytosis can be secondary to UTI and recent steroid use Qualifiers: Urinary tract infection type: site unspecified Hematuria presence: with hematuria Qualified Code(s): N39.0 - Urinary tract infection, site not specified; R31.9 - Hematuria, unspecified - Subjective Interval history: Patient seen and examined with daughter present at bedside. Pt noted to have rough night, became agitated requiring zyprexa. She also continues to refuse bipap support. She is noted to have good urine output with improvement in her respiratory status. - Constitutional Vitals: Temp Pulse Resp BP Pulse Ox 98.2 F 98 16 134/70 99 09/06/16 06:26 09/06/16 06:26 09/06/16 06:26 09/06/16 06:26 09/06/16 06:26 General appearance: Present: A&O X 1 (self and family), no acute distress - Head Head exam: Present: atraumatic, normocephalic - Eye Eye exam: Present: normal appearance, conjuntiva pink, sclera anicteric - Respiratory Respiratory exam: Absent: respiratory distress, wheezes (bibasilar crackles) - Cardiovascular Cardiovascular exam: Present: RRR, +S1, +S2. Absent: diastolic murmur, gallop, rubs, systolic murmur - GI/Abdominal GI/Abdominal exam: Present: normal bowel sounds, soft, no peritoneal signs. Absent: distended, tenderness - Extremities Exam Extremities exam: Present: warm, radial pulses palpable and symetrical. Absent : calf tenderness (significant improvement in bilateral pedal edema ) - Neurological Exam Neurological exam: Present: alert - Psychiatric Psychiatric exam: Present: normal affect, normal mood Internal Medicine: Result - Labs CBC & Chem 7: 09/06/16 05:57 09/06/16 05:57 Labs: Short CBC 09/06/16 Range/Units 05:57 WBC 15.0 H (4.3-11.1) K/mcL Hgb 13.9 (11.5-15.4) g/dL Hct 44.4 (35.3-44.9) % Plt Count 217 (140-400) K/mcL Neutrophils # 12.4 H (1.6-8.9) K/mcL BMP 09/06/16 05:57 Sodium 139 Potassium 4.1 Chloride 97 L Carbon Dioxide 32 H BUN 38 H Creatinine 1.31 H Glucose 137 H Calcium 9.9 Urine 09/05/16 Range/Units 11:00 Urine Color Yellow (Yellow) Urine Clarity Clear (Clear) Urine pH 5.5 (5.0-8.0) pH Units Ur Specific [place] 1.009 L (1.010-1.025) Urine Protein Negative (Neg-Trace) mg/dL Urine Glucose (UA) Normal (Normal) mg/dL - ABG Interpretation ABG results: ABG ABG pH 7.36 pH Units (7.32-7.45) 09/03/16 22:10 ABG pCO2 58 mmHg (35-45) H 09/03/16 22:10 ABG pO2 84 mmHg (85-104) L 09/03/16 22:10 ABG O2 Saturation 96 % (95-98) 09/03/16 22:10 - VTE Documentation of Mechanical Device: Intermittent pneumatic compression device Consult Discharge Plan - Plan Referrals: Boston Godoy MD [Primary Care Provider] -
[2016-09-06] MEDS ORDERED: *HR* LORazepam 0.5 MG TABLET PO PRN (21:28)
[2016-09-07 04:51] LABS: Basophils % 0.1 %; Eosinophils % 0.2 %; Hematocrit 46.4 % (35.3-44.9); Hemoglobin 14.4 g/dL (11.5-15.4); Immature Granulocytes % 0.5 % (0-4); Lymphocytes # 1.4 K/mcL (0.6-4.6); Lymphocytes % 9.9 %; Mean Corpuscular Hemoglobin 27.6 pg (28.0-33.3); Mean Corpuscular Volume 88.9 fL (83.0-100.0); Mean Platelet Volume 12.1 fL (9.4-12.4); Monocytes # 1.2 K/mcL (0.0-1.3); Monocytes % 8.6 %; Neutrophils # 11.6 K/mcL (1.6-8.9); Platelet Count 216 K/mcL (140-400); Red Blood Count 5.22 M/mcL (3.82-4.97); Red Cell Distribution Width 16.2 % (11.5-14.5); Segmented Neutrophils % 80.7 %
[2016-09-07 05:02] LABS: Phosphorous 2.4 mg/dL (2.3-4.7); Potassium 3.9 mEq/L (3.5-4.5)
[2016-09-07] MEDS: Ipratropium/Albuterol Neb 3 ML IH SCH ×4 (05:11→23:03)
[2016-09-07] MEDS: Nicotine 21 MG PATCH.TD24 TD SCH (08:31)
[2016-09-07] MEDS: Diltiazem CD (24hr) 180 MG CAPSULE PO SCH (08:32)
[2016-09-07] MEDS: Sennosides/Docusate Sodium TABLET PO SCH (08:32)
[2016-09-07] MEDS: Levofloxacin 250 MG/50 ML 250 MG/50 ML BAG IVPB SCH (08:33)
[2016-09-07] MEDS: *HR* Digoxin 0.125 MG TABLET PO SCH (08:33)
[2016-09-07] MEDS: Furosemide 40 MG/4 ML VIAL IVP SCH (08:33)
[2016-09-07] MEDS: APIXABAN 5 MG TABLET PO SCH ×2 (08:33→23:53)
[2016-09-07] MEDS: Insulin LISPRO 300 UNITS/3 ML VIAL SQ SCH ×4 (08:33→23:53)
[2016-09-07] MEDS ORDERED: *HR* LORazepam 2 MG/ML VIAL IVP ONE ×2 (11:11→14:41)
--- NOTE | 2016-09-07 11:14 | Internal Med Progress Note ---
Date of Encounter: 09/07/16 Time of Encounter: 11:13 - Assessment and plan (1) Acute CHF (congestive heart failure) Current Visit: Yes Status: Acute Assessment and plan: Acute decompensated CHF 2D echo reported LVEF of 40% with mild concentric LVH, moderate global LV systolic dysfunction, severely dilated LA, severely dilated RA, mild aortic regurgitation, moderate to severe TR, moderate pulmonary hypertension Will transition to PO lasix, Lasix 40mg PO BID acute on chronic respiratory failure with hypercapnia ABG concerning for a mixed gas, will repeat ABG and patient encouraged to use bipap support O2 supplementation and bipap support cardiology evaluation appreciated monitor I/Os fluid restriction diet monitor daily weights will closely monitor respiratory status PT/OT evaluation recommends ECF Qualifiers: Congestive heart failure type: systolic Qualified Code(s): I50.21 - Acute systolic (congestive) heart failure (2) COPD (chronic obstructive pulmonary disease) Current Visit: Yes Status: Acute Assessment and plan: not in acute exacerbation continue bronchodilator support as needed will start Symbicort twice a day pt encouraged to use bipap support patient will benefit from pulmonary evaluation as outpatient Qualifiers: COPD type: unspecified COPD Qualified Code(s): J44.9 - Chronic obstructive pulmonary disease, unspecified (3) Diabetes mellitus Current Visit: Yes Status: Acute Assessment and plan: Newly diagnosed Diabetes HbA1c: 6.5 continue sliding scale insulin algorithm monitor fingerstick and blood glucose Patients' daughter reported that the patient used to be on Metformin which was discontinued by her PCP a long time ago. Qualifiers: Diabetes mellitus type: type 2 Diabetes mellitus complication status: with unspecified complications Diabetes mellitus ad terminal makeup operator insulin use: without ad terminal makeup operator use Qualified Code(s): E11.8 - Type 2 diabetes mellitus with unspecified complications (4) Afib Current Visit: Yes Status: Chronic Assessment and plan: Rate controlled with Cardizem and BB anticoagulation with Eliquis will continue tele monitoring Qualifiers: Atrial fibrillation type: paroxysmal Qualified Code(s): I48.0 - Paroxysmal atrial fibrillation (5) DVT prophylaxis Current Visit: Yes Status: Acute Assessment and plan: anticoagulated with Eliquis (6) Smoking Current Visit: Yes Status: Acute Assessment and plan: smoking cessation counseling provided nicotine supplementation provided (7) UTI (urinary tract infection) Current Visit: Yes Status: Acute Assessment and plan: UA concerning for UTI contine Levaquin 500mg IV qd f/u official urine cultures, prelim positive for Gram negative rods leukocytosis can be secondary to UTI and recent steroid use Qualifiers: Urinary tract infection type: site unspecified Hematuria presence: with hematuria Qualified Code(s): N39.0 - Urinary tract infection, site not specified; R31.9 - Hematuria, unspecified - Subjective Interval history: Patient seen and examined at bedside. Resting in bed, remains somnolent but arousable. Has been continuously refusing bipap support with worsening of hypercapnia noted. Pt educated about the need to be compliant with bipap machine but she continues to refuse. Family aware. PT eval recommended ECF - Constitutional Vitals: Temp Pulse Resp BP Pulse Ox 97.6 F 88 18 116/65 97 09/07/16 06:41 09/07/16 06:41 09/07/16 10:39 09/07/16 06:41 09/07/16 10:39 General appearance: Present: A&O X 1 (self and family), no acute distress - Head Head exam: Present: atraumatic, normocephalic - Eye Eye exam: Present: conjuntiva pink, sclera anicteric - Respiratory Respiratory exam: Present: decreased breath sounds. Absent: wheezes - Cardiovascular Cardiovascular exam: Present: RRR, +S1, +S2. Absent: diastolic murmur, gallop, rubs, systolic murmur - GI/Abdominal GI/Abdominal exam: Present: normal bowel sounds, soft, no peritoneal signs. Absent: distended, tenderness - Extremities Exam Extremities exam: Present: warm, radial pulses palpable and symetrical. Absent : calf tenderness, cyanotic, pedal edema Internal Medicine: Result - Labs CBC & Chem 7: 09/07/16 04:03 09/07/16 04:03 Labs: Short CBC 09/07/16 Range/Units 04:03 WBC 14.4 H (4.3-11.1) K/mcL Hgb 14.4 (11.5-15.4) g/dL Hct 46.4 H (35.3-44.9) % Plt Count 216 (140-400) K/mcL Neutrophils # 11.6 H (1.6-8.9) K/mcL BMP 09/07/16 04:03 Sodium 142 Potassium 3.9 Chloride 94 L Carbon Dioxide 41 H* BUN 40 H Creatinine 1.38 H Glucose 136 H Calcium 10.0 - ABG Interpretation ABG results: ABG ABG pH 7.36 pH Units (7.32-7.45) 09/03/16 22:10 ABG pCO2 58 mmHg (35-45) H 09/03/16 22:10 ABG pO2 84 mmHg (85-104) L 09/03/16 22:10 ABG O2 Saturation 96 % (95-98) 09/03/16 22:10 - VTE Documentation of Mechanical Device: Intermittent pneumatic compression device Consult Discharge Plan - Plan Referrals: Boston Godoy MD [Primary Care Provider] -
[2016-09-07] MEDS: Budesonide/Formoterol 160/4.5 MDI IH SCH ×2 (11:30→23:03)
[2016-09-07 12:02] LABS: ABG Base Excess 18.6 mEq/L (-2.0 to 3.0); ABG HCO3 44.5 mEQ/L (21-27); ABG Oxygen Saturation 84 % (95-98); ABG PCO2 52 mmHg (35-45); ABG PH 7.54 pH Units (7.32-7.45); ABG TCO2 46.1 mEq/L (20-26)
[2016-09-07 12:19] LABS: ABG PO2 42 mmHg (85-104)
[2016-09-07 12:20] LABS: Blood Gas FiO2 21 %
[2016-09-07 13:20] LABS: ABG Base Excess 17.3 mEq/L (-2.0 to 3.0); ABG HCO3 42.8 mEQ/L (21-27); ABG Oxygen Saturation 93 % (95-98); ABG PCO2 50 mmHg (35-45); ABG PH 7.54 pH Units (7.32-7.45); ABG PO2 57 mmHg (85-104); ABG TCO2 44.3 mEq/L (20-26); Blood Gas FiO2 32 %
[2016-09-07] MEDS: Furosemide 40 MG TABLET PO SCH (17:22)
[2016-09-08] MEDS: Sennosides/Docusate Sodium TABLET PO SCH ×2 (00:03→09:16)
[2016-09-08 04:36] LABS: Basophils % 0.2 %; Eosinophils # 0.1 K/mcL (0.0-0.6); Eosinophils % 0.9 %; Hemoglobin 14.9 g/dL (11.5-15.4); Immature Granulocytes % 0.4 % (0-4); Lymphocytes # 1.2 K/mcL (0.6-4.6); Mean Corpuscular HGB Conc 31.7 g/dL (31.6-35.5); Mean Corpuscular Hemoglobin 28.4 pg (28.0-33.3); Mean Corpuscular Volume 89.5 fL (83.0-100.0); Mean Platelet Volume 12.5 fL (9.4-12.4); Monocytes # 1.1 K/mcL (0.0-1.3); Monocytes % 9.7 %; Neutrophils # 9.1 K/mcL (1.6-8.9); Platelet Count 190 K/mcL (140-400); Red Blood Count 5.25 M/mcL (3.82-4.97); Red Cell Distribution Width 16.2 % (11.5-14.5); Segmented Neutrophils % 78.8 %
[2016-09-08] MEDS: Ipratropium/Albuterol Neb 3 ML IH SCH ×3 (04:37→15:56)
[2016-09-08 04:59] LABS: Magnesium 2.1 mg/dL (1.6-2.6); Potassium 4.1 mEq/L (3.5-4.5)
[2016-09-08 05:01] LABS: Phosphorous 4.2 mg/dL (2.3-4.7)
[2016-09-08 05:18] LABS: Anisocytosis 1+ (Not Present); Platelet Estimate Normal (Normal); Reactive Lymphocytes Present (Not Present)
[2016-09-08 05:19] LABS: Large Platelets Present (Not Present)
[2016-09-08] MEDS: APIXABAN 5 MG TABLET PO SCH (08:42)
[2016-09-08] MEDS: Diltiazem CD (24hr) 180 MG CAPSULE PO SCH (08:42)
[2016-09-08] MEDS: *HR* Digoxin 0.125 MG TABLET PO SCH (08:42)
[2016-09-08] MEDS: Furosemide 40 MG TABLET PO SCH (08:42)
[2016-09-08] MEDS: Levofloxacin 250 MG/50 ML 250 MG/50 ML BAG IVPB SCH (08:43)
[2016-09-08] MEDS: Nicotine 21 MG PATCH.TD24 TD SCH (08:43)
[2016-09-08] MEDS: Insulin LISPRO 300 UNITS/3 ML VIAL SQ SCH (08:45)
[2016-09-08] MEDS: Budesonide/Formoterol 160/4.5 MDI IH SCH (10:53)
--- NOTE | 2016-09-08 12:35 | Discharge Summary ---
Date of Encounter: 09/08/16 Time of Encounter: 12:34 - Discharge Diagnosis (1) Acute CHF (congestive heart failure) Priority: Primary Status: Acute Qualifiers: Congestive heart failure type: systolic Qualified Code(s): I50.21 - Acute systolic (congestive) heart failure (2) COPD (chronic obstructive pulmonary disease) Priority: Secondary Status: Chronic Qualifiers: COPD type: unspecified COPD Qualified Code(s): J44.9 - Chronic obstructive pulmonary disease, unspecified (3) Diabetes mellitus Priority: Secondary Status: Acute Qualifiers: Diabetes mellitus type: type 2 Diabetes mellitus complication status: with unspecified complications Diabetes mellitus watermelon inspector insulin use: without penitentiary use Qualified Code(s): E11.8 - Type 2 diabetes mellitus with unspecified complications (4) Afib Priority: Secondary Status: Chronic Qualifiers: Atrial fibrillation type: paroxysmal Qualified Code(s): I48.0 - Paroxysmal atrial fibrillation (5) DVT prophylaxis Priority: Secondary Status: Acute (6) Smoking Priority: Secondary Status: Chronic (7) UTI (urinary tract infection) Priority: Secondary Status: Acute Qualifiers: Urinary tract infection type: site unspecified Hematuria presence: with hematuria Qualified Code(s): N39.0 - Urinary tract infection, site not specified; R31.9 - Hematuria, unspecified - Discharge Medications Prescriptions: Albuterol Sulfate [Albuterol Inhaler] 0 puff IH Q4HR PRN #1 [id number].[email or web address] PRN Reason: Shortness Of Breath Ipratropium/Albuterol Neb [Duoneb] 3 ml IH [id number] #1 inh Budesonide/Formoterol 160/4.5 [Symbicort 160/4.5] 2 puff IH BIDR #1 inh Furosemide [Lasix] 40 mg PO BIDDIURETIC #60 tab levoFLOXacin [Levaquin] 250 mg PO DAILY #3 tablet metFORMIN [Glucophage] 500 mg PO BIDWM #60 tablet Home Medications: Apixaban [Eliquis] 5 mg PO BID 09/03/16 [History] Atorvastatin [Lipitor] 40 mg PO HS 09/03/16 [History] Digoxin [Lanoxin] 0.125 mg PO DAILY 09/03/16 [History] Diltiazem HCl [Cardizem Cd] 360 mg PO DAILY 09/03/16 [History] Lisinopril [Zestril] 5 mg PO DAILY 09/03/16 [History] Metoprolol Tartrate [Lopressor] 50 mg PO BID 09/03/16 [History] Potassium Chloride [Klor-Con 10] 10 meq PO DAILY PRN 09/03/16 [History] Albuterol Sulfate [Albuterol Inhaler] 0 puff IH Q4HR PRN #1 hfa.aer.ad 09/08/16 [Rx] Budesonide/Formoterol 160/4.5 [Symbicort 160/4.5] 2 puff IH BIDR #1 inh [Rx] Furosemide [Lasix] 40 mg PO BIDDIURETIC #60 tab 09/08/16 [Rx] Ipratropium/Albuterol Neb [Duoneb] 3 ml IH [id number] #1 inh 09/08/16 [Rx] levoFLOXacin [Levaquin] 250 mg PO DAILY #3 tablet 09/08/16 [Rx] metFORMIN [Glucophage] 500 mg PO BIDWM #60 tablet 09/08/16 [Rx] Allergies/Adverse Reactions: Allergies Penicillins Allergy (Verified 09/03/16 16:38) See Comments Date of admission: 09/03/16 17:04 Primary care physician: Boston Godoy MD Consults: 09/03/16 16:44 Consult to [employer] [CONS] Routine Reason for SW Consult: CURRENT HOME HEALTH CARE, FAMILY UNSURE OF WHICH COMPLANY 09/03/16 18:23 Consult to Cardiology [CONS] Routine Comment: Consulting Provider: Cardiology Lucie Reason for Consult: 81F with CHF exacerbation, history of afib and non- ischemic cardiomyopathy. Patient of Dr. Harkins Call Completed: No 09/06/16 11:53 Consult to Occupational Therapy [CONS] Routine Comment: Evaluate, develop and implement POC Reason for Consult: eval for rehab Consult to Physical Therapy [CONS] Routine Comment: Evaluate, develop and implement POC Reason for Consult: eval for rehab Discharging clinician: Ana Garcia Anticipated date of discharge: 09/08/16 - Patient Status Disposition: Home Health Service Condition: Fair Functional capacity at discharge: uses cane/walker Overall status at discharge: patient is back to baseline - Discharge Instructions Follow Up With: Boston Godoy MD [Primary Care Provider] - Additional Instructions: Please follow up with your primary care physician within five days after your discharge from the hospital. Please follow up with your development architect and pulmonolgist within one week after your discharge from the hospital. Please continue to wear oxygen at all times. Please take the oral antibiotics as prescribed. Symbiort, Duoneb, and Albuterol have been added to your home medications, please take these medications as prescribed. You were found to have HbA1C of 6.5 due to which Metformin is added to your home medications. Please inform your PCP of these changes. Your home dose of lasix has been increased to 40mg twice a day. Please closely monitor your blood pressure, if your systolic blood pressure is less than 100, please do not take your BP medications and lasix. Please ask your development architect about the need to continue Eliquis, as it increases your risk of bleeding. Please seek medical help immediately if you sustain a fall while taking eliquis. Please resume all your other home medications as prescribed by your primary care doctor. - Diet and Activity Activity: as per physical therapy, wear oxygen at all times Diet: diabetic diet, low salt diet Hospital course: Ms. John is a 81 year old female with PMH of CHF, COPD, everyday smoker, HTN, dementia, Afib on anticoagulation who was brought to the hospital by family for evaluation of worsening shortness of breath. Patient has dementia at baseline and is only oriented to self and family. She lives with her son and has been noncompliant with her medications, diet, and continues to smoke daily. She was found to have CHF decompensation for which she was started on IV diuretics. She responded appropriately to therapy. However she has underlying chronic respiratory failure and needed to be on bipap support, which she continued to refuse and even with family's multiple attempts to convince the patient, patient continued to refuse to wear bipap support. She was also noted to have a UTI for which she was started on IV abx. Her advance directives were discussed during this hospitalization and her code status was changed to DNR/DNI. Pt was evaluated by physical therapy and ECF was recommended. Pt and family refusing eCF and state that they have 24/7 support at home and will take care of their mother at home. They have home health and will get home physical therapy. Pt's mental status is back at baseline, however she continues to remain somnolent but easily arousable. As per family, this is how the patient has been. Patient and family requesting patient's discharge to home. Patient has been seen by development architect and her home meds have been adjusted. At this time patient is hemodynamically stable and will be discharged to home with follow up with PCP, cardiology, and pulmonology. Pt also qualified for home oxygen and will be discharged with home O2. Patients family demonstrates understanding of her diagnosis and agree with the discharge care and plan. Patient's daughter also reported that the patient has history of DM however her PCP has been closely monitoring her HbA1C and her home dose of metformin was discontinued. Pt yuval be discharged to home with metformin. - Time Spent with Patient Total time spent providing and/or coordinating discharge services: Greater than 30 minutes - Constitutional Vitals: Temp Pulse Resp BP Pulse Ox 97.7 F 72 16 124/60 91 09/08/16 12:09 09/08/16 12:09 09/08/16 12:09 09/08/16 12:09/08/16 12:09 General appearance: Present: A&O X 1 (at baseline), no acute distress - Head Head exam: Present: atraumatic, normocephalic - Eye Eye exam: Present: conjuntiva pink, sclera anicteric - Respiratory Respiratory exam: Absent: respiratory distress, wheezes - Cardiovascular Cardiovascular exam: Present: RRR, +S1, +S2. Absent: diastolic murmur, gallop, rubs, systolic murmur - GI/Abdominal GI/Abdominal exam: Present: normal bowel sounds, soft, no peritoneal signs. Absent: distended, tenderness - Extremities Exam Extremities exam: Present: warm, radial pulses palpable and symetrical. Absent : calf tenderness - Neurological Exam Neurological exam: Present: alert - Psychiatric Psychiatric exam: Present: normal affect, normal mood - VTE Documentation of Mechanical Device: Intermittent pneumatic compression device
--- NOTE | 2016-09-08 14:15 | Physician Discharge Referral ---
Home Health/Hosp Referral Info Transfer to: Home Health Provider in Charge Post Discharge: PCP - Diagnosis (1) Acute CHF (congestive heart failure) Priority: Primary Status: Acute (2) COPD (chronic obstructive pulmonary disease) Priority: Secondary Status: Chronic (3) Diabetes mellitus Priority: Secondary Status: Acute (4) Afib Priority: Secondary Status: Chronic (5) DVT prophylaxis Priority: Secondary Status: Acute (6) Smoking Priority: Secondary Status: Chronic (7) UTI (urinary tract infection) Priority: Secondary Status: Acute - Respiratory Orders Oxygen / L per min (3L/min) Smoking Cessation: Smoking cessation has been advised. For more information, call the [place] Tobacco Quit Line at 7-882-MIBO-NOW. - Services Needed Following services are medically necessary services: Nursing, Home Health Aide, Physical Therapy, Occupational Therapy - Transfer Medications Prescriptions: Albuterol Sulfate [Albuterol Inhaler] 0 puff IH Q4HR PRN #1 hfa.aer.ad PRN Reason: Shortness Of Breath RX: Ipratropium/Albuterol Neb [Duoneb] 3 ml IH [id number] #1 inh RX: Budesonide/Formoterol 160/4.5 [Symbicort 160/4.5] 2 puff IH BIDR #1 inh RX: Furosemide [Lasix] 40 mg PO BIDDIURETIC #60 tab levoFLOXacin [Levaquin] 250 mg PO DAILY #3 tablet RX: metFORMIN [Glucophage] 500 mg PO BIDWM #60 tablet Home Medications: RX: Apixaban [Eliquis] 5 mg PO BID 09/03/16 [History] RX: Atorvastatin [Lipitor] 40 mg PO HS 09/03/16 [History] RX: Digoxin [Lanoxin] 0.125 mg PO DAILY 09/03/16 [History] RX: Diltiazem HCl [Cardizem Cd] 360 mg PO DAILY 09/03/16 [History] RX: Lisinopril [Zestril] 5 mg PO DAILY 09/03/16 [History] RX: Metoprolol Tartrate [Lopressor] 50 mg PO BID 09/03/16 [History] RX: Potassium Chloride [Klor-Con 10] 10 meq PO DAILY PRN 09/03/16 [History] Albuterol Sulfate [Albuterol Inhaler] 0 puff IH Q4HR PRN #1 hfa.aer.ad 09/08/16 [Rx] RX: Budesonide/Formoterol 160/4.5 [Symbicort 160/4.5] 2 puff IH BIDR #1 inh [Rx] RX: Furosemide [Lasix] 40 mg PO BIDDIURETIC #60 tab 09/08/16 [Rx] RX: Ipratropium/Albuterol Neb [Duoneb] 3 ml IH [id number] #1 inh 09/08/16 [Rx] RX: metFORMIN [Glucophage] 500 mg PO BIDWM #60 tablet 09/08/16 [Rx] levoFLOXacin [Levaquin] 250 mg PO DAILY #3 tablet 09/08/16 [Rx] Allergies/Adverse Reactions: Allergies Penicillins Allergy (Verified 09/03/16 16:38) See Comments Certification: Further, I certify that my clinical findings support that this patient is homebound (i.e. absences from home require considerable and taxing effort and are for medical reasons or buddhist services or infrequently or short duration when for other reasons) because: Homebound Reason: Patient requires assistance of a person or device to safely leave home Attestation: My signature below is to certify that this patient is under my care and that I, or nurse practitioner, or a physician's anesthesiologist assistant working with me, has a face-to -face encounter with this patient.
[2016-09-08 15:43] VITALS: BP 132/72
[2016-09-09] MEDS ORDERED: levoFLOXacin 250 MG TABLET PO SCH (09:00)
== END 2016-09-08 16:50 | disposition home health service (06) | DRG 291 ==
LOC: 2NENU
PROVIDERS: ADMIT Internal Medicine; ATTEND Internal Medicine

== ENCOUNTER 2017-05-17 05:52 | Inpatient (IN) ==
--- NOTE | 2017-05-17 07:12 | Emergency Department Note ---
Disposition Clinical Impression: Atrial fibrillation with RVR, Acute on chronic systolic (congestive) heart failure, NSTEMI (non-ST elevated myocardial infarction) Disposition: Admitted As Inpatient Condition: Fair General Adult HPI - General Chief complaint: ED Shortness of Breath/Dyspnea Stated complaint: sob Time Seen by Provider: 05/17/17 06:02 Source: patient, family Limitations: no limitations - History of Present Illness Pain Scale: 0 - Related Data Home Medications Medication Instructions Recorded Confirmed Apixaban [Eliquis] 5 mg PO BID 09/03/16 05/17/17 Atorvastatin [Lipitor] 40 mg PO HS 09/03/16 05/17/17 Diltiazem HCl [Cardizem Cd] 360 mg PO DAILY 09/03/16 05/17/17 Lisinopril [Zestril] 5 mg PO DAILY 09/03/16 05/17/17 Potassium Chloride [Klor-Con 10] 10 meq PO DAILY PRN 09/03/16 05/17/17 Furosemide [Lasix] 20 mg PO DAILY 05/17/17 05/17/17 Glimepiride [Amaryl] 1 mg PO DAILY 05/17/17 05/17/17 Metoprolol [Lopressor] 25 mg PO BID 05/17/17 05/17/17 Oxygen 2 l IH DAILY 05/17/17 05/17/17 Allergies Allergy/AdvReac Type Severity Reaction Status Date / Time Penicillins Allergy See Verified 09/03/16 16:38 Comments Past Medical History - Past Medical History Medical history: Reports: atrial fibrillation, CHF, COPD, coronary artery disease, CVA, dementia, hypertension, other Surgical history: Reports: no surgical history Psychiatric history: Reports: anxiety - Social History Smoking Status: Current some day smoker Smokeless Tobacco Status: No Alcohol use: Reports: none Drug use: Reports: none Physical Exam - General Limitations: no limitations General appearance: alert, in no apparent distress Course Vital Signs Temperature 97.8 F 05/17/17 05:54 Pulse Rate 98 05/17/17 05:54 Respiratory Rate 18 05/17/17 05:54 Blood Pressure 104/70 05/17/17 05:54 O2 Sat by Pulse Oximetry 100 05/17/17 05:54 Temperature 97.6 F 05/17/17 15:09 Pulse Rate 96 05/17/17 15:09 Respiratory Rate 16 05/17/17 15:09 Blood Pressure 95/63 05/17/17 15:09 O2 Sat by Pulse Oximetry 96 05/17/17 15:09 Oxygen Delivery Oxygen Delivery Nasal Cannula Medical Decision Making - Lab Data Result diagrams: 05/17/17 07:03 05/17/17 07:03 Lab Results 05/17/17 05/17/17 05/17/17 Range/Units 07:03 07:03 07:03 WBC 8.9 (4.3-11.1) K/mcL RBC 4.87 (3.82-4.97) M/mcL Hgb 14.4 (11.5-15.4) g/dL Hct 45.4 H (35.3-44.9) % MCV 93.2 (83.0-100.0) fL MCH 29.6 (28.0-33.3) pg MCHC 31.7 (31.6-35.5) g/dL RDW 15.4 H (11.5-14.5) % Plt Count 133 L (140-400) K/mcL MPV 13.4 H (9.4-12.4) fL Immature Gran % 0.3 (0-4) % Seg Neutrophils % 78.7 % Lymphocytes % 8.8 % Monocytes % 11.3 % Eosinophils % 0.3 % Basophils % 0.6 % Neutrophils # 7.0 (1.6-8.9) K/mcL Lymphocytes # 0.8 (0.6-4.6) K/mcL Monocytes # 1.0 (0.0-1.3) K/mcL Eosinophils # 0.0 (0.0-0.6) K/mcL Basophils # 0.1 (0.0-0.2) K/mcL Sodium 139 (136-145) mEq/L Potassium 4.5 (3.5-5.1) mEq/L Chloride 105 (98-107) mEq/L Carbon Dioxide 23 (23-29) mEq/L BUN 20 (8-23) mg/dL Creatinine 1.31 H (0.60-1.20) mg/dL Est GFR ( Amer) 47 L (> 60) Est GFR (Non-Af Amer) 39 L (> 60) BUN/Creatinine Ratio 15 (6-26) Glucose 141 H (70-105) mg/dL Calculated Osmolality 293 (280-300) Lactic Acid 1.1 (0.5-2.2) mmol/L Calcium 9.5 (8.6-10.3) mg/dL Total Bilirubin 0.5 (0.3-1.0) mg/dL AST 18 (13-39) Units/L ALT 12 (7-52) Units/L Alkaline Phosphatase 88 (34-104) Units/L Troponin I 0.92 H* (< 0.04) ng/mL B-Natriuretic Peptide (Less than 100) pg/mL Serum Total Protein 6.8 (6.4-8.9) g/dL Albumin 4.0 (3.5-5.7) g/dL Globulin 2.8 (2.4-3.5) g/dL Albumin/Globulin Ratio 1.4 (1.1-2.2) Urine Color (Yellow) Urine Clarity (Clear) Urine pH (5.0-8.0) pH Units Ur Specific [place] (1.010-1.025) Urine Protein (Neg-Trace) mg/dL Urine Glucose (UA) (Normal) mg/dL Urine Ketones (Negative) mg/dL Urine Blood (Negative) Urine Nitrite (Negative) Urine Bilirubin (Negative) Urine Urobilinogen (Normal) mg/dL Ur Leukocyte Esterase (Negative) Urine Microscopic RBC (0-3) per hpf Urine Microscopic WBC (0-3) per hpf Ur Squamous Epith Cells (None-Few) per lpf Urine Bacteria (None-Few) per hpf Hyaline Casts (None-Few) per lpf Ur Culture Indicated? (NO) Digoxin < 0.3 L (0.8-2.0) ng/mL 05/17/17 05/17/17 Range/Units 07:03 08:27 WBC (4.3-11.1) K/mcL RBC (3.82-4.97) M/mcL Hgb (11.5-15.4) g/dL Hct (35.3-44.9) % MCV (83.0-100.0) fL MCH (28.0-33.3) pg MCHC (31.6-35.5) g/dL RDW (11.5-14.5) % Plt Count (140-400) K/mcL MPV (9.4-12.4) fL Immature Gran % (0-4) % Seg Neutrophils % % Lymphocytes % % Monocytes % % Eosinophils % % Basophils % % Neutrophils # (1.6-8.9) K/mcL Lymphocytes # (0.6-4.6) K/mcL Monocytes # (0.0-1.3) K/mcL Eosinophils # (0.0-0.6) K/mcL Basophils # (0.0-0.2) K/mcL Sodium (136-145) mEq/L Potassium (3.5-5.1) mEq/L Chloride (98-107) mEq/L Carbon Dioxide (23-29) mEq/L BUN (8-23) mg/dL Creatinine (0.60-1.20) mg/dL Est GFR ( Amer) (> 60) Est GFR (Non-Af Amer) (> 60) BUN/Creatinine Ratio (6-26) Glucose (70-105) mg/dL Calculated Osmolality (280-300) Lactic Acid (0.5-2.2) mmol/L Calcium (8.6-10.3) mg/dL Total Bilirubin (0.3-1.0) mg/dL AST (13-39) Units/L ALT (7-52) Units/L Alkaline Phosphatase (34-104) Units/L Troponin I (< 0.04) ng/mL B-Natriuretic Peptide 1577 H (Less than 100) pg/mL Serum Total Protein (6.4-8.9) g/dL Albumin (3.5-5.7) g/dL Globulin (2.4-3.5) g/dL Albumin/Globulin Ratio (1.1-2.2) Urine Color Yellow (Yellow) Urine Clarity Slightly Hazy (Clear) Urine pH 5.5 (5.0-8.0) pH Units Ur Specific [place] 1.023 (1.010-1.025) Urine Protein 100 H (Neg-Trace) mg/dL Urine Glucose (UA) Normal (Normal) mg/dL Urine Ketones Negative (Negative) mg/dL Urine Blood Moderate H (Negative) Urine Nitrite Negative (Negative) Urine Bilirubin Negative (Negative) Urine Urobilinogen Normal (Normal) mg/dL Ur Leukocyte Esterase Trace H (Negative) Urine Microscopic RBC 3-5 H (0-3) per hpf Urine Microscopic WBC 5-15 H (0-3) per hpf Ur Squamous Epith Cells Many H (None-Few) per lpf Urine Bacteria Few (None-Few) per hpf Hyaline Casts None Seen (None-Few) per lpf Ur Culture Indicated? NO. (NO) Digoxin (0.8-2.0) ng/mL Critical Care Time Critical Care Time: Yes Total Critical Care Time: 30 Attestation: The high probability of a clinically significant, sudden or life threatening deterioration of the [] system(s) required my full and direct attention, intervention and personal management. The aggregate critical care time was [] minutes. This time is in addition to time spent performing reported procedures but includes the following: [] Data Review and interpretation [] Patient assessment and monitoring of vital signs [] Documentation [] Medication orders and management Attestation Statement - Attestation Attestation: For this encounter, I have reviewed the PERFORMANCE INSTRUCTOR or PA documentation, treatment plan, and medical decision making; and I have had face to face time with this patient. Face to face time provided [id number] time provided. Patient presents with dyspnea. Appears in no acute distress on exam. ECG reviewed by me shows atrial fibrillation with a ventricular response of 137 bpm. Patient seen in conjunction with the nurse practitioner Nunez 08:11: workup c/w afib with RVR, NSTEMI, CHF exacerbation. admitted to medicine service
--- NOTE | 2017-05-17 07:13 | Emergency Department Note ---
Disposition Clinical Impression: Atrial fibrillation with RVR, Acute on chronic systolic (congestive) heart failure, NSTEMI (non-ST elevated myocardial infarction) Disposition: Admitted As Inpatient Condition: Fair SOB HPI - General Chief Complaint: ED Shortness of Breath/Dyspnea Stated Complaint: sob Time Seen by Provider: 05/17/17 06:02 Source: patient, family Limitations: no limitations Nursing Notes Reviewed: Yes Vital Signs Reviewed: Yes - History of Present Illness 82 year old female with history of COPD, CFH, A-fib and dementia presents with cough and shortness of breath. Pt's daughter stated pt had dry cough since Sunday (2 days ago). Pt started shortness of breath yesterday. Pt couldn't sleep flat at night. Worsening confusion. Pt has no chill and fever at home. Her another daughter was admitted to hospital for Pneumonia yesterday. Pt has home oxygen as needed. Pt used oxygen twice with 1 hour each time since yesterday. Pt is up-to-date on Pneumonia shot. She follows up with Dr. Rojas (PCP ) and Dr. Michelle (Cardiology). Pt Subjective Complaint: shortness of breath, cough Onset (ago): day(s) (2) Severity: moderate Improves with: upright position Worsens with: lying flat Known history of: COPD, other (chf) Associated symptoms: Denies: chest pain Treatment prior to arrival: oxygen Cough present: Yes Cough Description: Dry - Related Data Home Medications Medication Instructions Recorded Confirmed Apixaban [Eliquis] 5 mg PO BID 09/03/16 05/17/17 Atorvastatin [Lipitor] 40 mg PO HS 09/03/16 05/17/17 Diltiazem HCl [Cardizem Cd] 360 mg PO DAILY 09/03/16 05/17/17 Lisinopril [Zestril] 5 mg PO DAILY 09/03/16 05/17/17 Potassium Chloride [Klor-Con 10] 10 meq PO DAILY PRN 09/03/16 05/17/17 Furosemide [Lasix] 20 mg PO DAILY 05/17/17 05/17/17 Glimepiride [Amaryl] 1 mg PO DAILY 05/17/17 05/17/17 Metoprolol [Lopressor] 25 mg PO BID 05/17/17 05/17/17 Oxygen 2 l IH DAILY 05/17/17 05/17/17 Allergies Allergy/AdvReac Type Severity Reaction Status Date / Time Penicillins Allergy See Verified 09/03/16 16:38 Comments Constitutional: Denies: fever, chills, weakness Eyes: Denies: eye pain, eye discharge ENT ED: Denies: ear pain, throat pain Cardiovascular: Reports: dyspnea on exertion. Denies: chest pain, palpitations Respiratory: Reports: cough, dyspnea, wheezes Gastrointestinal: Denies: abdominal pain, nausea, vomiting Genitourinary: Denies: urgency, dysuria, frequency Musculoskeletal: Reports: joint swelling (baseline ankles swelling). Denies: back pain, neck pain Integumentary: Denies: rash, abrasion, lesions Neurological: Denies: headache, weakness, numbness Psychiatric: Reports: anxiety. Denies: depression, suicidal thoughts Endocrine: Denies: fatigue, heat or cold intolerance Hematological/Lymphatic: Denies: easy bleeding, easy bruising Allergic/Immunologic: Denies: facial swelling, urticaria Past Medical History - Past Medical History Medical history: Reports: atrial fibrillation, CHF, COPD, coronary artery disease, CVA, dementia, hypertension, other Surgical history: Reports: no surgical history Psychiatric history: Reports: anxiety - Social History Smoking Status: Current some day smoker Smokeless Tobacco Status: No Alcohol use: Reports: none Drug use: Reports: none Physical Exam - General Limitations: no limitations General appearance: alert, in no apparent distress - Head Head exam: atraumatic, normal inspection - Eye Eye exam: Present: normal appearance. Absent: scleral icterus, conjunctival injection - ENT ENT exam: normal exam - Neck Neck exam: Present: normal inspection, full ROM, trachea midline. Absent: tenderness - Chest Chest inspection: Present: normal inspection, symmetric chest wall rise. Absent : tenderness - Respiratory Respiratory exam: Present: wheezes, other (crackers on both lower lungs) - Cardiovascular Cardiovascular exam: Present: tachycardia, irregular rhythm - Abdominal Exam Abdominal exam: Present: soft, Non-Tender - Extremities Exam Extremities exam: Present: normal inspection, full ROM. Absent: tenderness - Back Exam Back exam: Present: normal inspection, full ROM. Absent: tenderness - Neurological Exam Neurological exam: Present: alert, other (oriented to place and people) - Psychiatric Psychiatric exam: Present: agitated - Skin Skin exam: Present: warm, diaphoresis Course Vital Signs Temperature 97.8 F 05/17/17 05:54 Pulse Rate 98 05/17/17 05:54 Respiratory Rate 18 05/17/17 05:54 Blood Pressure 104/70 05/17/17 05:54 O2 Sat by Pulse Oximetry 100 05/17/17 05:54 Temperature 97.6 F 05/17/17 15:09 Pulse Rate 96 05/17/17 15:09 Respiratory Rate 16 05/17/17 15:09 Blood Pressure 95/63 05/17/17 15:09 O2 Sat by Pulse Oximetry 96 05/17/17 15:09 Oxygen Delivery Oxygen Delivery Nasal Cannula Shortness of Breath/Dyspnea - MDM Narrative Medical decision making narrative: 82 year old female with history of CHF, A-fib, COPD, diabetes, CVA, dementia presents with shortness of breath. Pt's daughter stated pt started dry cough two days ago, started shortness of breath, couldn't lie flat since yesterday. Pt has home oxygen as needed. She had to use it twice at home. no chill and fever. physical exam: bilateral wheezing and crackers, tachycardia (>150) with irregular rhythm, mild bilateral ankle edema; EKG: a-fib with RVR, labs: BNP 1500, troponin 0.9, chest xray: Bibasilar pulmonary opacities may represent atelectasis, edema, and/or pneumonia. Dr. El saw the patient, agrees to admit pt for CHF, A-fib with RVR and non-stemi, give Aspirin, Lasix and caltizem in ER, Dr. Carlson consulted, accepted the patient. 08:30 am, pt's heart rate decreased to 110, BP keep on 110s/ 60s , repeated troponin slightly elevated. pt seems more calm. Dr. Carlson came to ER and saw the patient. - Lab Data Lab results reviewed: Yes I reviewed the patient's lab results. Result diagrams: 05/17/17 07:03 05/17/17 07:03 Lab Results 05/17/17 05/17/17 05/17/17 Range/Units 07:03 07:03 07:03 WBC 8.9 (4.3-11.1) K/mcL RBC 4.87 (3.82-4.97) M/mcL Hgb 14.4 (11.5-15.4) g/dL Hct 45.4 H (35.3-44.9) % MCV 93.2 (83.0-100.0) fL MCH 29.6 (28.0-33.3) pg MCHC 31.7 (31.6-35.5) g/dL RDW 15.4 H (11.5-14.5) % Plt Count 133 L (140-400) K/mcL MPV 13.4 H (9.4-12.4) fL Immature Gran % 0.3 (0-4) % Seg Neutrophils % 78.7 % Lymphocytes % 8.8 % Monocytes % 11.3 % Eosinophils % 0.3 % Basophils % 0.6 % Neutrophils # 7.0 (1.6-8.9) K/mcL Lymphocytes # 0.8 (0.6-4.6) K/mcL Monocytes # 1.0 (0.0-1.3) K/mcL Eosinophils # 0.0 (0.0-0.6) K/mcL Basophils # 0.1 (0.0-0.2) K/mcL Sodium 139 (136-145) mEq/L Potassium 4.5 (3.5-5.1) mEq/L Chloride 105 (98-107) mEq/L Carbon Dioxide 23 (23-29) mEq/L BUN 20 (8-23) mg/dL Creatinine 1.31 H (0.60-1.20) mg/dL Est GFR ( Amer) 47 L (> 60) Est GFR (Non-Af Amer) 39 L (> 60) BUN/Creatinine Ratio 15 (6-26) Glucose 141 H (70-105) mg/dL Calculated Osmolality 293 (280-300) Lactic Acid 1.1 (0.5-2.2) mmol/L Calcium 9.5 (8.6-10.3) mg/dL Total Bilirubin 0.5 (0.3-1.0) mg/dL AST 18 (13-39) Units/L ALT 12 (7-52) Units/L Alkaline Phosphatase 88 (34-104) Units/L Troponin I 0.92 H* (< 0.04) ng/mL B-Natriuretic Peptide (Less than 100) pg/mL Serum Total Protein 6.8 (6.4-8.9) g/dL Albumin 4.0 (3.5-5.7) g/dL Globulin 2.8 (2.4-3.5) g/dL Albumin/Globulin Ratio 1.4 (1.1-2.2) Urine Color (Yellow) Urine Clarity (Clear) Urine pH (5.0-8.0) pH Units Ur Specific [place] (1.010-1.025) Urine Protein (Neg-Trace) mg/dL Urine Glucose (UA) (Normal) mg/dL Urine Ketones (Negative) mg/dL Urine Blood (Negative) Urine Nitrite (Negative) Urine Bilirubin (Negative) Urine Urobilinogen (Normal) mg/dL Ur Leukocyte Esterase (Negative) Urine Microscopic RBC (0-3) per hpf Urine Microscopic WBC (0-3) per hpf Ur Squamous Epith Cells (None-Few) per lpf Urine Bacteria (None-Few) per hpf Hyaline Casts (None-Few) per lpf Ur Culture Indicated? (NO) Digoxin < 0.3 L (0.8-2.0) ng/mL 05/17/17 05/17/17 Range/Units 07:03 08:27 WBC (4.3-11.1) K/mcL RBC (3.82-4.97) M/mcL Hgb (11.5-15.4) g/dL Hct (35.3-44.9) % MCV (83.0-100.0) fL MCH (28.0-33.3) pg MCHC (31.6-35.5) g/dL RDW (11.5-14.5) % Plt Count (140-400) K/mcL MPV (9.4-12.4) fL Immature Gran % (0-4) % Seg Neutrophils % % Lymphocytes % % Monocytes % % Eosinophils % % Basophils % % Neutrophils # (1.6-8.9) K/mcL Lymphocytes # (0.6-4.6) K/mcL Monocytes # (0.0-1.3) K/mcL Eosinophils # (0.0-0.6) K/mcL Basophils # (0.0-0.2) K/mcL Sodium (136-145) mEq/L Potassium (3.5-5.1) mEq/L Chloride (98-107) mEq/L Carbon Dioxide (23-29) mEq/L BUN (8-23) mg/dL Creatinine (0.60-1.20) mg/dL Est GFR ( Amer) (> 60) Est GFR (Non-Af Amer) (> 60) BUN/Creatinine Ratio (6-26) Glucose (70-105) mg/dL Calculated Osmolality (280-300) Lactic Acid (0.5-2.2) mmol/L Calcium (8.6-10.3) mg/dL Total Bilirubin (0.3-1.0) mg/dL AST (13-39) Units/L ALT (7-52) Units/L Alkaline Phosphatase (34-104) Units/L Troponin I (< 0.04) ng/mL B-Natriuretic Peptide 1577 H (Less than 100) pg/mL Serum Total Protein (6.4-8.9) g/dL Albumin (3.5-5.7) g/dL Globulin (2.4-3.5) g/dL Albumin/Globulin Ratio (1.1-2.2) Urine Color Yellow (Yellow) Urine Clarity Slightly Hazy (Clear) Urine pH 5.5 (5.0-8.0) pH Units Ur Specific [place] 1.023 (1.010-1.025) Urine Protein 100 H (Neg-Trace) mg/dL Urine Glucose (UA) Normal (Normal) mg/dL Urine Ketones Negative (Negative) mg/dL Urine Blood Moderate H (Negative) Urine Nitrite Negative (Negative) Urine Bilirubin Negative (Negative) Urine Urobilinogen Normal (Normal) mg/dL Ur Leukocyte Esterase Trace H (Negative) Urine Microscopic RBC 3-5 H (0-3) per hpf Urine Microscopic WBC 5-15 H (0-3) per hpf Ur Squamous Epith Cells Many H (None-Few) per lpf Urine Bacteria Few (None-Few) per hpf Hyaline Casts None Seen (None-Few) per lpf Ur Culture Indicated? NO. (NO) Digoxin (0.8-2.0) ng/mL - Radiology Data Radiology results reviewed: Yes I reviewed the patient's radiology results.
[2017-05-17 07:36] LABS: Alanine Aminotransferase 12 Units/L (7-52); Albumin/Globulin Ratio 1.4 (1.1-2.2); Alkaline Phosphatase 88 Units/L (34-104); Aspartate Amino Transferase 18 Units/L (13-39); BUN/Creatinine Ratio 15 (6-26); Bilirubin,Total 0.5 mg/dL (0.3-1.0); Blood Urea Nitrogen 20 mg/dL (8-23); Calcium 9.5 mg/dL (8.6-10.3); Carbon Dioxide 23 mEq/L (23-29); Chloride 105 mEq/L (98-107); Globulin 2.8 g/dL (2.4-3.5); Glucose 141 mg/dL (70-105); Osmolality,Calculated 293 (280-300); Potassium 4.5 mEq/L (3.5-5.1); Sodium 139 mEq/L (136-145); Total Protein 6.8 g/dL (6.4-8.9); eGFR For African Americans 47 (> 60); eGFR For Non-African Americans 39 (> 60)
[2017-05-17] MEDS ORDERED: methylPREDNISolone 125 MG/2 ML VIAL IVP ONE (07:38)
[2017-05-17 07:43] LABS: Basophils # 0.1 K/mcL (0.0-0.2); Basophils % 0.6 %; Eosinophils % 0.3 %; Hematocrit 45.4 % (35.3-44.9); Hemoglobin 14.4 g/dL (11.5-15.4); Immature Granulocytes % 0.3 % (0-4); Lymphocytes # 0.8 K/mcL (0.6-4.6); Lymphocytes % 8.8 %; Mean Corpuscular HGB Conc 31.7 g/dL (31.6-35.5); Mean Corpuscular Hemoglobin 29.6 pg (28.0-33.3); Mean Corpuscular Volume 93.2 fL (83.0-100.0); Mean Platelet Volume 13.4 fL (9.4-12.4); Monocytes % 11.3 %; Platelet Count 133 K/mcL (140-400); Red Blood Count 4.87 M/mcL (3.82-4.97); Red Cell Distribution Width 15.4 % (11.5-14.5); Segmented Neutrophils % 78.7 %; Troponin I 0.92 ng/mL (< 0.04)
[2017-05-17] MEDS ORDERED: diazePAM 5 MG TABLET PO ONE ×2 (07:48→07:59)
[2017-05-17] MEDS ORDERED: Aspirin 81 MG TAB.CHEW PO ONE (07:52)
[2017-05-17] MEDS ORDERED: Furosemide 40 MG/4 ML VIAL IVP ONE ×2 (08:11→08:12)
--- NOTE | 2017-05-17 08:31 | Internal Med History&Physical ---
Date of Encounter: 05/17/17 Time of Encounter: 08:10 Internal Medicine - H&P: HPI Admitted From: Emergency Dept Plans for Post Hospital Care: Home History of present illness: Ms. John is a 82 year old woman with a history of atrial fibrillation, chronic systolic heart failure, O2-dependent COPD, and DM-2 who presented this am in A-Fib with RVR and 24 hrs of worsening SOB. She was agitated earlier so she was given Valium and now unable to answer many questions on her own. Most of her history comes from daughters and the electronic medical record. Her daughter reports she had been c/o chest pain earlier. She was given a bolus of Cardizem and is now on a Cardizem drip with a HR in the 100-110 range. No ischemic changes were noted on the ECG but her first two troponins are elevated (0.92 --> 1.01). She is currently requiring her baseline supplemental O2 requirement (2L/NC) and has wheezing and rales on exam. Her last Echo (08/28) showed ~40 LVEF and mod-severe TR. She was given 40 mg of IV Lasix in the ER. Her SBP is stable in the low 100s. She's afebrile with a normal WBC but has a productive cough, which family states began in the past few days. Past Med Surg Social Fam HX - Past Medical History Medical history: atrial fibrillation, CHF, COPD, coronary artery disease, CVA, dementia, hypertension, other Psychiatric history: anxiety - Past Surgical History Surgical History: no surgical history - Social History Smoking Status: Current some day smoker Smokeless Tobacco Status: No Alcohol use: none Drug use: none - Family History Father Living Status: Hx Family Cancer: Yes Mother Living Status: Internal Medicine - H&P: Meds Apixaban [Eliquis] 5 mg PO BID 09/03/16 [History] Atorvastatin [Lipitor] 40 mg PO HS 09/03/16 [History] Diltiazem HCl [Cardizem Cd] 360 mg PO DAILY 09/03/16 [History] Lisinopril [Zestril] 5 mg PO DAILY 09/03/16 [History] Potassium Chloride [Klor-Con 10] 10 meq PO DAILY PRN 09/03/16 [History] Furosemide [Lasix] 20 mg PO DAILY 05/17/17 [History] Glimepiride [Amaryl] 1 mg PO DAILY 05/17/17 [History] Metoprolol [Lopressor] 25 mg PO BID 05/17/17 [History] Oxygen 2 l IH DAILY 05/17/17 [History] 3 Allergy/AdvReac Type Severity Reaction Status Date / Time Penicillins Allergy See Verified 09/03/16 16:38 Comments ROS unobtainable: other All Systems PM: A 10-system review of systems was performed and is negative for pertinent findings except as documented above in the HPI. Review of systems: She was sedated for agitation and can provide only minimal information on her won. - Constitutional Vitals: Temp Pulse Resp BP Pulse Ox 97.8 F 98 18 104/70 100 05/17/17 05:54 05/17/17 05:54 05/17/17 05:54 05/17/17 05:54 05/17/17 05:54 General appearance: Present: A&O X 3, pleasant Exam: Shes fairly sedated and somnolent now but is oriented x3. - Head Head exam: Present: atraumatic, normocephalic - Eye Eye exam: Present: PERRL, conjuntiva pink, sclera anicteric Pupils: Present: PERRL - Neck Neck exam general surgery: Present: supple, trachea midline. Absent: lymphadenopathy, tenderness, thyromegaly - Respiratory Respiratory exam: Present: rales, wheezes. Absent: accessory muscle use, rhonchi, stridor, tachypnea - Cardiovascular Cardiovascular exam: Present: irregular rhythm, systolic murmur, tachycardia. Absent: diastolic murmur, gallop, JVD, RRR, rubs - GI/Abdominal GI/Abdominal exam: Present: normal bowel sounds, soft, no peritoneal signs. Absent: distended, firm, guarding, tenderness - Extremities Exam Extremities exam: Present: pedal edema, warm. Absent: calf tenderness, cyanotic - Neurological Exam Neurological exam: Present: CN II-XII intact, oriented X3, no focal deficits. Absent: pronater drift, facial droop, speech deficit Additional comments: Very somnolent so minimal neuro exam possible - Psychiatric Psychiatric exam: Present: agitated - Skin Skin exam: Present: dry, intact Internal Med - H&P Results - Labs CBC & Chem 7: 05/17/17 07:03 05/17/17 07:03 Labs: Short CBC 05/17/17 Range/Units 07:03 WBC 8.9 (4.3-11.1) K/mcL Hgb 14.4 (11.5-15.4) g/dL Hct 45.4 H (35.3-44.9) % Plt Count 133 L (140-400) K/mcL Neutrophils # 7.0 (1.6-8.9) K/mcL BMP 05/17/17 07:03 Sodium 139 Potassium 4.5 Chloride 105 Carbon Dioxide 23 BUN 20 Creatinine 1.31 H Glucose 141 H Calcium 9.5 Cardiac Enzymes 05/17/17 Range/Units 07:03 Troponin I 0.92 H* (< 0.04) ng/mL Liver Function 05/17/17 Range/Units 07:03 Total Bilirubin 0.5 (0.3-1.0) mg/dL AST 18 (13-39) Units/L ALT 12 (7-52) Units/L Alkaline Phosphatase 88 (34-104) Units/L Albumin 4.0 (3.5-5.7) g/dL - Impressions ITS Impressions Chest X-Ray 05/17/17 06:15 IMPRESSION: 1. Bibasilar pulmonary opacities may represent atelectasis, edema, and/or pneumonia. Recommend radiographic follow-up to complete resolution. 2. Persistently enlarged cardiomediastinal silhouette. D/ / 05/17/2017 07:58:33 Robson Lorenzo MD / [facility] Interpreting Provider: Robson Lorenzo MD - [facility]TE Documentation of Mechanical Device: Intermittent pneumatic compression device Contraindication No Overlap Therapy: Admin of oral Factor Xa Inhibitor Deep Vein Thrombosis/Pulmonary Embolism Present on Admission: No - Assessment and plan (1) Atrial fibrillation with RVR Current Visit: Yes Status: Acute Assessment and plan: Admit to telemetry unit Continue Cardizem drip and titrate back to home rate control meds Continue Eliquis (However family reports vaginal spotting so Gynocolgy consulted and Hgb >14 with no active bleeding (2) Acute on chronic systolic (congestive) heart failure Current Visit: Yes Status: Acute Assessment and plan: Given 40 lasix in ER Continue Lasix 4o IVP BID Monitor fluid balance Low salt diet and 1500 ml PO fluid restriction Echo ordered Continue TINO/ARB (3) Severe tricuspid regurgitation Current Visit: No Status: Chronic Assessment and plan: Echo ordered to evaluate CHF (4) Diabetes mellitus Current Visit: No Status: Chronic Assessment and plan: Because of NSTEMI she's NPO While NPO check AccuChecks q6 hrs with Med-dose SSI Q6 hrs Qualifiers: Diabetes mellitus type: type 2 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: without mcc use Diabetes mellitus complication status: with unspecified complications Qualified Code(s): E11.8 - Type 2 diabetes mellitus with unspecified complications (5) Anticoagulant long-term use Current Visit: No Status: Chronic Assessment and plan: On Eliquis for stroke prophylaxis Code(s): 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 (6) NSTEMI (non-ST elevated myocardial infarction) Current Visit: Yes Status: Acute Assessment and plan: Elevated troponin likely associated with demand ischemia secondary to A-Fib RVR also in setting of CHF Code(s): I21.4 - Non-ST elevation (NSTEMI) myocardial infarction (7) COPD exacerbation Current Visit: Yes Status: Acute Assessment and plan: Given 125 mg SoluMedrol Continue SoluMedrol 40 mg IVP q8 hrs Add Albuterol Nebs, Spiriva, and Symbicort Empiric antibiotics (Levaquin) Code(s): J44.1 - Chronic obstructive pulmonary disease with (acute) exacerbation (8) Vaginal bleeding Current Visit: No Status: Chronic Assessment and plan: Family reports intermittent vaginal bleeding in pt on Eliquis for AFib stroke prophylaxis Hgb = >14 No active bleeding Consult Link Trainer Teacher Code(s): N93.9 - Abnormal uterine and vaginal bleeding, unspecified - Time Spent With Patient Total time spent is greater than 50% in coordination of care (as documented) at patient's floor/unit and/or counseling patient: Greater than 35 minutes
[2017-05-17 08:41] LABS: Bilirubin,Urine Negative (Negative); Blood,Urine Moderate (Negative); Color,Urine Yellow (Yellow); Glucose,Urine (UA) Normal (Normal); Ketones,Urine Negative (Negative); Leukocyte Esterase,Urine Trace (Negative); Nitrite,Urine Negative (Negative); PH,Urine 5.5 pH Units (5.0-8.0); Protein,Urine 100 mg/dL (Neg-Trace); Specific Gravity,Urine 1.023 (1.010-1.025); Urobilinogen,Urine Normal (Normal)
[2017-05-17 08:43] LABS: Bacteria,Urine Few per hpf (None-Few); Hyaline Casts,Urine None Seen per lpf (None-Few); Squamous Epithelial Cell,Urine Many per lpf (None-Few)
[2017-05-17 08:48] LABS: Clarity,Urine Slightly Hazy (Clear)
[2017-05-17 08:57] LABS: Digoxin < 0.3 ng/mL (0.8-2.0)
[2017-05-17] MEDS ORDERED: *HR* Dextrose 50 % in Water (Syg) 50 ML SYRINGE IVP PRN ×2 (09:25→17:28)
[2017-05-17] MEDS ORDERED: Dextrose Gel 15 GM/37.5 ML TUBE PO PRN ×4 (09:25→17:28)
[2017-05-17] MEDS ORDERED: D5% in Water 1,000 ML IVC PRN ×2 (09:25→17:28)
[2017-05-17] MEDS: Apixaban 5 MG TABLET PO SCH ×2 (09:47→21:29)
[2017-05-17] MEDS ORDERED: Levofloxacin 750 MG/150 ML 750 MG/150 ML BAG IVPB SCH (10:00)
[2017-05-17 10:21] LABS: INR 1.3; Prothrombin Time 13.8 Seconds (9.4-12.1)
[2017-05-17 10:23] LABS: Activated Partial Thrombo Time 31.2 Seconds (26.0-36.0)
[2017-05-17] MEDS ORDERED: 0.9 % Sodium Chloride 250 ML ONE (10:23)
[2017-05-17] MEDS ORDERED: Insulin LISPRO 300 UNITS/3 ML VIAL SQ SCH (12:00)
[2017-05-17] MEDS: Albuterol 2.5 MG/3 ML NEBULIZER IH SCH ×4 (12:09→23:09)
[2017-05-17] MEDS: Budesonide/Formoterol 160/4.5 MDI IH SCH ×2 (12:12→19:50)
[2017-05-17] MEDS: Tiotropium 18 MCG inhalation IH SCH (12:14)
--- NOTE | 2017-05-17 12:33 | Cardiology Consult Note ---
<Bridgett Cyr Allie - Last Filed: 05/17/17 12:45> Date of Encounter: 05/17/17 Time of Encounter: 11:45 Assessment and Plan (1) Afib Current Visit: Yes Status: Chronic Hx of atrial fibrillation on Eliquis. Heart rates have been controlled on cardizem, BB as outpatient. RVR likely secondary to PNA, suspect difficulty with rate control until underlying issues resolved. Continue cardizem gtt, titrate to keep HR less than 100. Restart BB. Continue Eliquis for AC. Qualifiers: Atrial fibrillation type: persistent Qualified Code(s): I48.1 - Persistent atrial fibrillation (2) Elevated troponin Current Visit: Yes Status: Acute Elevated troponin 0.92, 1.01 in the setting of atrial fibrillation with RVR, PNA likely secondary to demand ischemia; cannot rule out ACS. No chest pain reported. No acute ischemic ECG changes noted. Hx of NIMCP, EF 40%. Last [facility] 2013 demonstrated mild non-obstructive CAD, 90% OM1--medical therapy recommended. No heparin gtt, pt on Eliquis, continue for now. Continue asa, statin, BB. Continue to trend troponin. Check echocardiogram. May need to consider ischemic evaluation prior to discharge, discussed with pt' s daughter, she reports her mother may refuse. Will continue to follow. (3) CHF (congestive heart failure) Current Visit: Yes Status: Acute Suspect symptoms largely secondary to PNA--IV atb started. No overt fluid overload upon exam. Hx of LVEF 40% (non-ischemic). Restart BB, resume ACEi upon discharge. Continue diuresis. Strict I&O's, daily weights, Na/fluid restriction diet. Qualifiers: Heart failure type: combined systolic and diastolic Heart failure chronicity: acute on chronic Qualified Code(s): I50.43 - Acute on chronic combined systolic (congestive) and diastolic (congestive) heart failure Discussion w patient/family: The assessment and plan as outlined above was discussed with the patient and/or family members who expressed understanding and agreement. All questions were answered. Thank you for involving us in the care of your patient. Please call with any questions. The patient will be discussed and reviewed with Dr. Miller; changes to be made accordingly. History of Present Illness Consult date: 05/17/17 Requesting physician: Jack Carlson Consult reason: Afib with RVR, elevated troponin Chief complaint: Cough History of present illness: Ms. John is a 82 year old female with PMHx significant for NICMP, CAD, prior tobacco use, prior CVA, and AF who presented to the ED with worsening shortness of breath with associated cough over the past several days. Reportedly patient did not want to come to the ED and had anxiety/panic attack in ED and was given a valium. Patient is drowsy upon exam, daughter at bedside provides much of the history. Reports sick contacts, "everyone in the house has pneumonia." No chest pain reported. Prior CV testing: [facility] 08/2013: mild non-obstructive CAD, has 90% OM1--medical therapy recommended [facility] 05/2013: EF 40%, moderate global hypokinesis, severe left atrial enlargement, severe PH (est RVSP=59 mmHg), no significant valvular dysfunction [facility] 10/2015: EF 35-40% [facility] 08/2016: EF 40%, mildly dilated LV, severe biatrial enlargement, mild AR, mild-moderate MR, moderate to severe TR, moderate PH (RVSP= 47) Past Med Surg Social Fam HX - Past Medical History Attestation: Yes The following information was validated with the patient. Source: patient, old records reviewed, obtained from family Medical history: atrial fibrillation, CHF, COPD, coronary artery disease, CVA, dementia, hypertension, other Psychiatric history: anxiety - Past Surgical History Surgical History: no surgical history - Social History Smoking Status: Current some day smoker Packs per day: ECIG Smokeless Tobacco Status: No Alcohol use: none Drug use: none - Family History Father Living Status: Hx Family Cancer: Yes Mother Living Status: Medications and Allergies Apixaban [Eliquis] 5 mg PO BID 09/03/16 [History] Atorvastatin [Lipitor] 40 mg PO HS 09/03/16 [History] Diltiazem HCl [Cardizem Cd] 360 mg PO DAILY 09/03/16 [History] Lisinopril [Zestril] 5 mg PO DAILY 09/03/16 [History] Potassium Chloride [Klor-Con 10] 10 meq PO DAILY PRN 09/03/16 [History] Furosemide [Lasix] 20 mg PO DAILY 05/17/17 [History] Glimepiride [Amaryl] 1 mg PO DAILY 05/17/17 [History] Metoprolol [Lopressor] 25 mg PO BID 05/17/17 [History] Oxygen 2 l IH DAILY 05/17/17 [History] 3 Allergy/AdvReac Type Severity Reaction Status Date / Time Penicillins Allergy See Verified 09/03/16 16:38 Comments All Systems Review: The remainder of the systems were reviewed and are negative - Cardiovascular Cardiovascular: as per HPI Physical Examination Vital Signs, Last 4 Hours Pulse Resp BP Pulse Ox 05/17/17 11:59 110 110/91 05/17/17 11:15 114 115/80 05/17/17 09:45 107 16 114/69 94 05/17/17 09:28 18 112/65 General: Other (drowsy) HEENT: Atraumatic, Normocephaly Cardiac: Other (tachycardiac, irregulard) Lungs: Other (decreased) Abdomen: Soft Skin: No rashes noted on visualized skin Musculoskeletal: No Chest Wall Tenderness Extremities: No Edema, Normal Pulses Results 05/17/17 07:03 05/17/17 07:03 Lab Results 05/17/17 05/17/17 08:40 09:58 INR 1.3 APTT 31.2 Troponin I 1.01 H* Active Medications Albuterol Sulfate (Proventil Neb) 2.5 mg IH [id number] RUTHY PRN Reason: Protocol Stop: 11/16/17 12:01 Last Admin: 05/17/17 12:09 Dose: 2.5 mg Apixaban (Eliquis) 5 mg PO BID RUTHY Stop: 11/16/17 09:01 Last Admin: 05/17/17 09:47 Dose: 5 mg Atorvastatin Calcium (Lipitor) 40 mg PO HS RUTHY Stop: 11/16/17 21:01 Budesonide/Formoterol Fumarate (Symbicort) 2 puff IH BIDR RUTHY PRN Reason: Protocol Stop: 11/16/17 10:01 Last Admin: 05/17/17 12:12 Dose: 2 puff Dextrose/Water (Dextrose 50% (Syg)) 25 ml IVP AD PRN PRN Reason: Hypoglycemia Stop: 11/16/17 09:26 Furosemide (Lasix) 40 mg IVP BIDDIURETIC RUTHY Stop: 11/16/17 21:01 Glucagon (Glucagen) 1 mg IM ONCE PRN PRN Reason: Hypoglycemia Stop: 11/16/17 09:26 Glucose (Gluctose) 15 gm PO ONCE PRN PRN Reason: Hypoglycemia Stop: 11/16/17 09:26 Glucose (Gluctose) 30 gm PO ONCE PRN PRN Reason: Hypoglycemia Stop: 11/16/17 09:26 Diltiazem HCl 125 mg/ Sodium (Chloride) 125 mls @ 5 mls/hr IVC .Q24H RUTHY; 5 MG/ HR PRN Reason: Protocol Stop: 11/16/17 07:16 Last Titration: 05/17/17 12:00 Dose: 10 mg/hr, 10 mls/hr Levofloxacin/Dextrose (Levaquin Premix 750mg/150 Ml) 750 mg in 150 mls @ 100 mls/hr IVPB Q48H RUTHY PRN Reason: Protocol Stop: 11/16/17 10:01 Last Admin: 05/17/17 11:14 Dose: 100 mls/hr Dextrose (Dextrose 5%) 1,000 mls @ 100 mls/hr IVC .Q10H PRN PRN Reason: HYPOGLYCEMIA Stop: 11/16/17 09:26 Insulin Human Lispro (Humalog) 0 units SQ Q6HR RUTHY PRN Reason: Protocol Stop: 11/16/17 12:01 Methylprednisolone (Solu-Medrol) 40 mg IVP Q8HR RUTHY Stop: 11/16/17 16:01 Tiotropium [place] (Spiriva) 18 mcg IH DAILYR RUTHY Stop: 11/16/17 10:01 Last Admin: 05/17/17 12:14 Dose: Not Given Impressions Chest X-Ray 05/17/17 06:15 IMPRESSION: 1. Bibasilar pulmonary opacities may represent atelectasis, edema, and/or pneumonia. Recommend radiographic follow-up to complete resolution. 2. Persistently enlarged cardiomediastinal silhouette. D/ / 05/17/2017 07:58:33 Robson Lorenzo MD / [email or web address] Interpreting Provider: Robson Lorenzo MD - Imaging and Cardiology Echo: report reviewed Cardiac cath: report reviewed Other Results: HR 100's-120's at bedside - EKG Interpretation EKG results cardiology: personally reviewed Consult Discharge Plan - Plan Referrals: Boston Godoy MD [Primary Care Provider] - <Rebecca Miller - Last Filed: 05/17/17 16:09> Date of Encounter: 05/17/17 - Attending Attestation I have personally performed a face to face evaluation on this patient. I have reviewed and agree with the care plan. History and Exam by me shows: 82-year-old female with history of known atrial fibrillation on anticoagulation for stroke risk reduction, COPD long history of smoking and recent left heart catheter in 2013 indicating nonischemic cardiomyopathy and ejection fraction of 40%. She presents today with shortness of breath paroxysmal atrial fibrillation with RVR and noted to have an elevated troponin. She denies any chest pain but does have baseline shortness of breath. Chest x-ray shows possible mild congestion. Patient is a poor historian currently with anxiety and irritability unhappy being at the hospital. Daughter at bedside was advised patient has multiple comorbidities with previous nonobstructive disease except for one obtuse marginal. Conservative medical management was recommended especially after significant improvement in her breathing after a breathing treatment. Patient also DNR Comfort Care which likely would need changed her to any invasive procedures. Patient's daughter at bedside will discuss with family members. At this time planned interventions or procedures and continue medical management Assessment and Plan Discussion w patient/family: The assessment and plan as outlined above was discussed with the patient and/or family members who expressed understanding and agreement. All questions were answered. Thank you for involving us in the care of your patient. Please call with any questions. History of Present Illness History of present illness: Ms. John is a 82 year old female All Systems Review: The remainder of the systems were reviewed and are negative Physical Examination Vital Signs, Last 4 Hours Temp Pulse Resp BP Pulse Ox 05/17/17 15:09 97.6 F 96 16 95/63 96 05/17/17 13:30 96.9 F L 05/17/17 13:13 97 18 98/74 94 Results 05/17/17 07:03 05/17/17 07:03 Lab Results 05/17/17 05/17/17 08:40 09:58 INR 1.3 APTT 31.2 Troponin I 1.01 H*
[2017-05-17] MEDS ORDERED: *HR* LORazepam 2 MG/ML VIAL IVP ONE (13:35)
[2017-05-17] MEDS: Metoprolol XL (24 HR) Succ 25 MG TAB.ER.24H PO SCH (17:18)
[2017-05-17] MEDS: MethylPREDNISolone 40 MG/ML VIAL IVP SCH ×2 (17:18→23:57)
--- NOTE | 2017-05-17 17:22 | Electrocardiograph Report ---
[facility] 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
[2017-05-17] MEDS: Furosemide 40 MG/4 ML VIAL IVP SCH (21:29)
[2017-05-18] MEDS: Albuterol 2.5 MG/3 ML NEBULIZER IH SCH ×6 (03:36→23:10)
[2017-05-18] MEDS: Budesonide/Formoterol 160/4.5 MDI IH SCH ×2 (07:20→19:36)
[2017-05-18] MEDS: Tiotropium 18 MCG inhalation IH SCH (07:23)
[2017-05-18 07:38] LABS: Basophils % 0.1 %; Hematocrit 42.7 % (35.3-44.9); Hemoglobin 13.8 g/dL (11.5-15.4); Immature Granulocytes % 0.7 % (0-4); Lymphocytes # 0.7 K/mcL (0.6-4.6); Lymphocytes % 9.9 %; Mean Corpuscular HGB Conc 32.3 g/dL (31.6-35.5); Mean Corpuscular Hemoglobin 29.8 pg (28.0-33.3); Mean Corpuscular Volume 92.2 fL (83.0-100.0); Mean Platelet Volume 13.6 fL (9.4-12.4); Monocytes # 0.3 K/mcL (0.0-1.3); Monocytes % 4.4 %; Neutrophils # 6.3 K/mcL (1.6-8.9); Platelet Count 126 K/mcL (140-400); Red Blood Count 4.63 M/mcL (3.82-4.97); Red Cell Distribution Width 15.2 % (11.5-14.5); Segmented Neutrophils % 84.9 %
[2017-05-18 07:48] LABS: Calcium 9.2 mg/dL (8.6-10.3); Potassium 4.1 mEq/L (3.5-5.1)
[2017-05-18] MEDS: Apixaban 5 MG TABLET PO SCH ×2 (10:34→20:57)
[2017-05-18] MEDS: Metoprolol XL (24 HR) Succ 25 MG TAB.ER.24H PO SCH (10:34)
[2017-05-18] MEDS: Furosemide 40 MG/4 ML VIAL IVP SCH (10:34)
[2017-05-18] MEDS: MethylPREDNISolone 40 MG/ML VIAL IVP SCH ×3 (10:35→23:59)
[2017-05-18] MEDS: Insulin LISPRO 300 UNITS/3 ML VIAL SQ SCH ×3 (10:35→17:50)
--- NOTE | 2017-05-18 13:01 | Cardiology Progress Note ---
Date of Encounter: 05/18/17 Time of Encounter: 11:00 Assessment and Plan (1) Afib Current Visit: Yes Status: Chronic Per cardiology: -Hx of atrial fibrillation on Eliquis. -Average HR previous 12 hours noted to be 67, a.fib. -RVR likely secondary to PNA, suspect difficulty with rate control until underlying issues resolved. -On cardizem drip at 2.5mg/hour. Oral beta evangelista resumed yesterday. -Discontinue cardizem drip. Continue beta evangelista and eliquis for anticoagulation. Qualifiers: Atrial fibrillation type: persistent Qualified Code(s): I48.1 - Persistent atrial fibrillation (2) CHF (congestive heart failure) Current Visit: Yes Status: Acute Per cardiology: -Suspect symptoms largely secondary to PNA--IV atb started. -No overt fluid overload upon exam. -Hx of LVEF 40% (non-ischemic). -Restart BB, resume ACEi upon discharge. -Strict I&O's, daily weights, Na/fluid restriction diet. -Will switch lasix to oral. Qualifiers: Heart failure type: combined systolic and diastolic Heart failure chronicity: acute on chronic Qualified Code(s): I50.43 - Acute on chronic combined systolic (congestive) and diastolic (congestive) heart failure (3) Elevated troponin Current Visit: Yes Status: Acute Per cardiology: -Elevated troponin 0.92, 1.01, 0.43, 0.25 in the setting of atrial fibrillation with RVR, PNA likely secondary to demand ischemia; cannot rule out ACS. -No chest pain reported. No acute ischemic ECG changes noted. -Hx of NIMCP, EF 40%. Last [facility] 2013 demonstrated mild non-obstructive CAD, 90% OM1--medical therapy recommended. -No heparin gtt, pt on Eliquis, continue for now. Continue asa, statin, BB. -TTE pending. -May need to consider ischemic evaluation prior to discharge, discussed with pateint and pt's daughter, at this time does not wish to persue further invasive testing. -Further recommendations pending TTE -Again, suspect demand ischemia, no cardiac rehab consult warranted. -IF no significant findings on TTE, anticipate cardiology sign off. Discussion w patient/family: The assessment and plan as outlined above was discussed with the patient and/or family members who expressed understanding and agreement. All questions were answered. Thank you for involving us in the care of your patient. Please call with any questions. Discussed and reviewed with Subjective Principal diagnosis: PAF, CHF Interval history: Patient reports she feels much better today. States shortness of breath improved. Objective Vital Signs, Last 4 Hours Temp Pulse Resp BP Pulse Ox 05/18/17 11:57 97.5 F L 88 16 118/65 95 05/18/17 11:38 17 90 General: Conversant, No Apparent Distress HEENT: Atraumatic, Normocephaly, Mucus Membranes Moist Neck: No JVD, Normal carotid pulses Cardiac: Normal S1 and S2, No Murmur, Other (Irregularly irregular) Lungs: Other (Inspiratory wheezes noted. ) Neuro: Alert and responsive, No focal deficits noted Abdomen: Soft, Non-Tender Skin: No rashes noted on visualized skin Musculoskeletal: No Chest Wall Tenderness Extremities: No Clubbing, No Cyanosis, No Edema, Normal Pulses Results 05/18/17 06:48 05/18/17 06:48 Lab Results Active Medications Albuterol Sulfate (Proventil Neb) 2.5 mg IH [id number] RUTHY PRN Reason: Protocol Stop: 11/16/17 12:01 Last Admin: 05/18/17 11:38 Dose: 2.5 mg Apixaban (Eliquis) 5 mg PO BID RUTHY Stop: 11/16/17 09:01 Last Admin: 05/18/17 10:34 Dose: 5 mg Atorvastatin Calcium (Lipitor) 40 mg PO HS RUTHY Stop: 11/16/17 21:01 Last Admin: 05/17/17 21:29 Dose: 40 mg Budesonide/Formoterol Fumarate (Symbicort) 2 puff IH BIDR RUTHY PRN Reason: Protocol Stop: 11/16/17 10:01 Last Admin: 05/18/17 07:20 Dose: 2 puff Dextrose/Water (Dextrose 50% (Syg)) 25 ml IVP AD PRN PRN Reason: Hypoglycemia Stop: 11/16/17 09:26 Dextrose/Water (Dextrose 50% (Syg)) 25 ml IVP AD PRN PRN Reason: Hypoglycemia Stop: 11/16/17 17:29 Furosemide (Lasix) 40 mg IVP BIDDIURETIC RUTHY Stop: 11/16/17 21:01 Last Admin: 05/18/17 10:34 Dose: 40 mg Glucagon (Glucagen) 1 mg IM ONCE PRN PRN Reason: Hypoglycemia Stop: 11/16/17 09:26 Glucagon (Glucagen) 1 mg IM ONCE PRN PRN Reason: Hypoglycemia Stop: 11/16/17 17:29 Glucose (Gluctose) 15 gm PO ONCE PRN PRN Reason: Hypoglycemia Stop: 11/16/17 09:26 Glucose (Gluctose) 30 gm PO ONCE PRN PRN Reason: Hypoglycemia Stop: 11/16/17 09:26 Glucose (Gluctose) 15 gm PO ONCE PRN PRN Reason: Hypoglycemia Stop: 11/16/17 17:29 Glucose (Gluctose) 30 gm PO ONCE PRN PRN Reason: Hypoglycemia Stop: 11/16/17 17:29 Dextrose (Dextrose 5%) 1,000 mls @ 100 mls/hr IVC .Q10H PRN PRN Reason: HYPOGLYCEMIA Stop: 11/16/17 09:26 Dextrose (Dextrose 5%) 1,000 mls @ 100 mls/hr IVC .Q10H PRN PRN Reason: HYPOGLYCEMIA Stop: 11/16/17 17:29 Levofloxacin/Dextrose (Levaquin Premix 500mg/100ml) 500 mg in 100 mls @ 100 mls /hr IVPB Q48H [facility] PRN Reason: Protocol Stop: 11/18/17 09:01 Insulin Human Lispro (Humalog) 0 units SQ TIDAC [facility] PRN Reason: Protocol Stop: 11/17/17 07:31 Last Admin: 05/18/17 10:35 Dose: 2 units Methylprednisolone (Solu-Medrol) 40 mg IVP Q8HR [facility] Stop: 11/16/17 16:01 Last Admin: 05/18/17 10:35 Dose: 40 mg Metoprolol Succinate (Toprol Xl) 25 mg PO DAILY [facility] Stop: 11/16/17 12:46 Last Admin: 05/18/17 10:34 Dose: 25 mg Tiotropium [place] (Spiriva) 18 mcg IH DAILYR [facility] Stop: 11/16/17 10:01 Last Admin: 05/18/17 07:23 Dose: Not Given Laboratory Tests 05/17/17 05/17/17 05/17/17 07:03 07:03 08:40 Hgb Potassium Creatinine Troponin I 0.92 H* 1.01 H* B-Natriuretic Peptide 1577 H 05/17/17 05/17/17 05/18/17 14:48 19:14 06:48 Hgb 13.8 Potassium Creatinine Troponin I 0.43 H* 0.25 H* B-Natriuretic Peptide 05/18/17 06:48 Hgb Potassium 4.1 Creatinine 1.52 H Troponin I B-Natriuretic Peptide - Imaging and Cardiology Chest Xray: report reviewed Echo: pending - EKG Interpretation EKG results cardiology: other (Telemetry reviewed with average HR previous 12 hours noted to be 67, a.fib. PVCs noted.) - VTE Documentation of Mechanical Device: Intermittent pneumatic compression device Contraindication No Overlap Therapy: Admin of oral Factor Xa Inhibitor Deep Vein Thrombosis/Pulmonary Embolism Present on Admission: No Consult Discharge Plan - Plan Referrals: Boston Godoy MD [Primary Care Provider] -
--- NOTE | 2017-05-18 14:16 | Internal Med Progress Note ---
Date of Encounter: 05/18/17 Time of Encounter: 14:16 - Assessment and plan (1) COPD exacerbation Current Visit: Yes Status: Acute Assessment and plan: 125 mg SoluMedrol and continue SoluMedrol 40 mg IVP q8 hrs Continue Albuterol Nebs, Spiriva, and Symbicort Empiric antibiotics (Levaquin) Code(s): J44.1 - Chronic obstructive pulmonary disease with (acute) exacerbation (2) Diabetes mellitus Current Visit: No Status: Chronic Assessment and plan: NSTEMI Accu-Cheks with low-dose sliding scale coverage Diabetic cardiac diet Qualifiers: Diabetes mellitus type: type 2 Diabetes mellitus mcfp insulin use: without mcfp use Diabetes mellitus complication status: with unspecified complications Qualified Code(s): E11.8 - Type 2 diabetes mellitus with unspecified complications (3) Atrial fibrillation with RVR Current Visit: Yes Status: Acute Assessment and plan: Cardizem drip discontinued, continue beta evangelista and Eliquis per cardiology note Continue Eliquis (Family reported vaginal spotting in the ER at the daughter at the bedside status and going on for some time and her anticoagulation has been adjusted in the past secondary to the bleeding and they request no further workup at this time. Gynocolgy consulted Hgb stable with no active bleeding (4) Acute on chronic systolic (congestive) heart failure Current Visit: Yes Status: Acute Assessment and plan: IV Lasix changed to 40 mg by mouth twice a day per cardiology Monitor fluid balance Low salt diet and 1500 ml PO fluid restriction Echo pending with history of LV EF of 40% Continue Toprol XL and resume Festus on discharge (5) Severe tricuspid regurgitation Current Visit: No Status: Chronic Assessment and plan: Echo ordered (6) Anticoagulant long-term use Current Visit: No Status: Chronic Assessment and plan: Eliquis for stroke prophylaxis Code(s): Z79.01 - correction (current) use of anticoagulants (7) NSTEMI (non-ST elevated myocardial infarction) Current Visit: Yes Status: Acute Assessment and plan: Elevated troponin likely associated with demand ischemia secondary to A-Fib RVR also in setting of CHF Cardiology cannot rule out ACS. No chest pain is reported with no acute ischemic ECG changes noted. Last heart catheter in 2013 demonstrated mild nonobstructive CAD with 90% HERRERA and medical therapy recommended. No heparin drip patient is on Eliquis. Continue for now. Continue aspirin, statin and beta evangelista. Evaluate echo. Cardiology discussed further ischemic evaluation with the patient and the patient's daughter and they do not wish to pursue further invasive testing. Audiology sixpacks demand ischemia with no cardiac rehabilitation consult warranted. They state if no significant findings on echo will sign off. Code(s): I21.4 - Non-ST elevation (NSTEMI) myocardial infarction (8) Vaginal bleeding Current Visit: No Status: Chronic Assessment and plan: Family reports intermittent vaginal bleeding in pt on Eliquis for AFib stroke prophylaxis that has been ongoing for a long time and has been followed in the past. They do not request any further workup at this time No active bleeding will discontinue Regional Guide consult Code(s): N93.9 - Abnormal uterine and vaginal bleeding, unspecified - Time Spent With Patient Total time spent is greater than 50% in coordination of care (as documented) at patient's floor/unit and/or counseling patient: - Subjective Interval history: Patient sitting up in bed in no distress and her breakfast. Her daughter is at the bedside. The patient has dementia. She has no recall of historical things and her daughter filled me in on what has been going on. Her mother was a previous smoker now utilizing E cigarettes. She has had a history of intermittent vaginal bleeding for a long time which has been followed and they declined further pelvic testing at this time. She stated they had to adjust her anticoagulation in the past secondary to increased bleeding. The daughter feels the edema looks better today. The patient denies any chest pain and keeps saying that she wants to go home. She was cooperative with exam - Constitutional Vitals: Temp Pulse Resp BP Pulse Ox 97.5 F L 88 16 118/65 95 05/18/17 11:57 05/18/17 11:57 05/18/17 11:57 05/18/17 11:57 05/18/17 11:57 General appearance: Present: cooperative, A&O X 2, A&O X 3, pleasant. Absent: answers questions appropriately - Head Head exam: Present: atraumatic, normocephalic - Eye Eye exam: Present: PERRL, conjuntiva pink, sclera anicteric Pupils: Present: PERRL - Neck Neck exam general surgery: Present: supple, trachea midline. Absent: lymphadenopathy - Respiratory Respiratory exam: Present: CTAB. Absent: accessory muscle use, rales, respiratory distress, rhonchi, wheezes, tachypnea - Cardiovascular Cardiovascular exam: Present: irregular rhythm, +S1, +S2. Absent: diastolic murmur, gallop, rubs, systolic murmur - GI/Abdominal GI/Abdominal exam: Present: normal bowel sounds, soft, no peritoneal signs. Absent: distended, tenderness - Extremities Exam Extremities exam: Present: pedal edema, warm, radial pulses palpable and symmetrical. Absent: calf tenderness, cyanotic - Neurological Exam Neurological exam: Present: alert, CN II-XII intact, no focal deficits. Absent : pronater drift, facial droop, speech deficit - Skin Skin exam: Present: dry, intact, normal color, warm Internal Medicine: Result - Labs CBC & Chem 7: 05/18/17 06:48 05/18/17 06:48 Labs: Short CBC 05/18/17 Range/Units 06:48 WBC 7.4 (4.3-11.1) K/mcL Hgb 13.8 (11.5-15.4) g/dL Hct 42.7 (35.3-44.9) % Plt Count 126 L (140-400) K/mcL Neutrophils # 6.3 (1.6-8.9) K/mcL BMP 05/18/17 06:48 Sodium 139 Potassium 4.1 Chloride 107 Carbon Dioxide 21 L BUN 29 H Creatinine 1.52 H Glucose 195 H Calcium 9.2 Cardiac Enzymes 05/17/17 05/17/17 Range/Units 14:48 19:14 Troponin I 0.43 H* 0.25 H* (< 0.04) ng/mL - ABG Interpretation ABG results: PT/INR, D-dimer PT 13.8 Seconds (9.4-12.1) H 05/17/17 09:58 - VTE Documentation of Mechanical Device: Intermittent pneumatic compression device Contraindication No Overlap Therapy: Admin of oral Factor Xa Inhibitor Deep Vein Thrombosis/Pulmonary Embolism Present on Admission: No Consult Discharge Plan - Plan Referrals: Boston Godoy MD [Primary Care Provider] -
[2017-05-18] MEDS: Furosemide 40 MG TABLET PO SCH (17:50)
[2017-05-19] MEDS: Albuterol 2.5 MG/3 ML NEBULIZER IH SCH ×5 (03:25→19:44)
[2017-05-19 04:45] LABS: Hematocrit 44.5 % (35.3-44.9); Hemoglobin 14.6 g/dL (11.5-15.4); Mean Corpuscular HGB Conc 32.8 g/dL (31.6-35.5); Mean Corpuscular Hemoglobin 29.6 pg (28.0-33.3); Mean Corpuscular Volume 90.3 fL (83.0-100.0); Mean Platelet Volume 13.1 fL (9.4-12.4); Platelet Count 135 K/mcL (140-400); Red Blood Count 4.93 M/mcL (3.82-4.97); Red Cell Distribution Width 15.3 % (11.5-14.5)
[2017-05-19 05:06] LABS: Calcium 9.4 mg/dL (8.6-10.3); Potassium 3.7 mEq/L (3.5-5.1)
[2017-05-19] MEDS: Tiotropium 18 MCG inhalation IH SCH (07:28)
[2017-05-19] MEDS: Budesonide/Formoterol 160/4.5 MDI IH SCH ×2 (07:30→19:44)
[2017-05-19] MEDS: Insulin LISPRO 300 UNITS/3 ML VIAL SQ SCH ×3 (08:08→17:45)
[2017-05-19] MEDS: Furosemide 40 MG TABLET PO SCH ×2 (08:09→16:16)
[2017-05-19] MEDS: Apixaban 5 MG TABLET PO SCH ×2 (08:09→19:57)
[2017-05-19] MEDS: MethylPREDNISolone 40 MG/ML VIAL IVP SCH ×3 (08:09→23:38)
[2017-05-19] MEDS: Metoprolol XL (24 HR) Succ 25 MG TAB.ER.24H PO SCH (08:09)
[2017-05-19] MEDS ORDERED: Levofloxacin 500 MG/100 ML 500 MG/100 ML BAG IVPB SCH (09:00)
--- NOTE | 2017-05-19 15:09 | Internal Med Progress Note ---
Date of Encounter: 05/19/17 Time of Encounter: 15:07 - Assessment and plan (1) COPD exacerbation Current Visit: Yes Status: Acute Assessment and plan: continue SoluMedrol 40 mg IVP q8 hrs Continue Albuterol Nebs, Spiriva, and Symbicort Empiric antibiotics (Levaquin) Code(s): J44.1 - Chronic obstructive pulmonary disease with (acute) exacerbation (2) Diabetes mellitus Current Visit: No Status: Chronic Assessment and plan: Accu-Cheks with low-dose sliding scale coverage Diabetic cardiac diet Qualifiers: Diabetes mellitus type: type 2 Diabetes mellitus exterminator helper insulin use: without assisted use Diabetes mellitus complication status: with unspecified complications Qualified Code(s): E11.8 - Type 2 diabetes mellitus with unspecified complications (3) Atrial fibrillation with RVR Current Visit: Yes Status: Acute Assessment and plan: Cardizem drip discontinued, continue beta evangelista and Eliquis per cardiology note Continue Eliquis (Family reported vaginal spotting in the ER at the daughter at the bedside status and going on for some time and her anticoagulation has been adjusted in the past secondary to the bleeding and they request no further workup at this time. Gynocolgy consult cancelled Hgb stable with no active bleeding (4) Acute on chronic systolic (congestive) heart failure Current Visit: Yes Status: Acute Assessment and plan: IV Lasix changed to 40 mg by mouth twice a day per cardiology will decrease to daily with elevated creatine Monitor fluid balance Low salt diet and 1500 ml PO fluid restriction Echo reviewed with history of LV EF of 40%, now LVEF 30-40% with indeterminate diastolic function. Mildly dilated left ventricle. Mild concentric left ventricular hypertrophy. Severely dilated left atrium and severely dilated right atrium, mild aortic regurgitation and mild to moderate mitral regurgitation. Mild pulmonary hypertension. The pericardium appears normal. Rest Echo findings with multiple douglas were hypokinetic. Continue Toprol XL and resume Festus on discharge (5) Severe tricuspid regurgitation Current Visit: No Status: Chronic Assessment and plan: Echo reviewed with moderate tricuspid regurgitation and estimated RVSP is 33 mm per Hg. (6) Anticoagulant long-term use Current Visit: No Status: Chronic Assessment and plan: Continue Eliquis for stroke prophylaxis Code(s): Z79.01 - intermodal customer service (current) use of anticoagulants (7) NSTEMI (non-ST elevated myocardial infarction) Current Visit: Yes Status: Acute Assessment and plan: Elevated troponin likely associated with demand ischemia secondary to A-Fib RVR also in setting of CHF Cardiology cannot rule out ACS. No chest pain is reported with no acute ischemic ECG changes noted. Last heart cath in 2013 demonstrated mild nonobstructive CAD with 90% HERRERA and medical therapy recommended. No heparin drip patient is on Eliquis. Continue for now. Continue aspirin, statin and beta evangelista. Evaluate echo. Cardiology discussed further ischemic evaluation with the patient and the patient's daughter and they do not wish to pursue further invasive testing. cardiology suspects demand ischemia with no cardiac rehabilitation consult warranted. They state if no significant findings on echo will sign off. Code(s): I21.4 - Non-ST elevation (NSTEMI) myocardial infarction (8) Vaginal bleeding Current Visit: No Status: Resolved Assessment and plan: Family reports intermittent vaginal bleeding in pt on Eliquis for AFib stroke prophylaxis that has been ongoing for a long time and has been followed in the past. They do not request any further workup at this time No active bleeding, will discontinue Child Center Assistant consult Code(s): N93.9 - Abnormal uterine and vaginal bleeding, unspecified - Time Spent With Patient Total time spent is greater than 50% in coordination of care (as documented) at patient's floor/unit and/or counseling patient: - Subjective Interval history: Patient sitting up in bed in no distress with daughter at the bedside. The daughter states that she walked her mom in the [place] and she became very dyspneic and winded and return to the bed and took a little bit to recover. He is currently satting on room air so O2 sat was obtained heart rate has been a little tachycardia 106-117. She denies any fevers or sweats. She feels her breathing is better at rest. Discussed plan of care with the daughter and she is agreeable to her staying 1 more day. - Constitutional Vitals: Temp Pulse Resp BP Pulse Ox 97.6 F 117 16 110/72 91 05/19/17 11:58 05/19/17 11:58 05/19/17 11:58 05/19/17 11:58 05/19/17 11:58 General appearance: Present: cooperative, A&O X 2, pleasant. Absent: answers questions appropriately - Head Head exam: Present: atraumatic, normocephalic - Eye Eye exam: Present: PERRL, conjuntiva pink, sclera anicteric Pupils: Present: PERRL - Neck Neck exam general surgery: Present: supple, trachea midline. Absent: lymphadenopathy - Respiratory Respiratory exam: Present: decreased breath sounds, wheezes. Absent: accessory muscle use, rales, rhonchi - Cardiovascular Cardiovascular exam: Present: irregular rhythm, +S1, +S2. Absent: diastolic murmur, gallop, rubs, systolic murmur - GI/Abdominal GI/Abdominal exam: Present: normal bowel sounds, soft, no peritoneal signs. Absent: distended, tenderness - Extremities Exam Extremities exam: Present: warm, radial pulses palpable and symmetrical. Absent : calf tenderness, cyanotic, pedal edema - Neurological Exam Neurological exam: Present: alert, CN II-XII intact, no focal deficits. Absent : pronater drift, facial droop, speech deficit - Skin Skin exam: Present: dry, intact, normal color, warm Internal Medicine: Result - Labs CBC & Chem 7: 05/19/17 04:10 05/19/17 04:10 Labs: Short CBC 05/19/17 Range/Units 04:10 WBC 14.5 H D (4.3-11.1) K/mcL Hgb 14.6 (11.5-15.4) g/dL Hct 44.5 (35.3-44.9) % Plt Count 135 L (140-400) K/mcL [facility] 05/19/17 04:10 Sodium 141 Potassium 3.7 Chloride 105 Carbon Dioxide 27 BUN 38 H Creatinine 1.48 H Glucose 204 H Calcium 9.4 - ABG Interpretation ABG results: PT/INR, D-dimer PT 13.8 Seconds (9.4-12.1) H 05/17/17 09:58 - Impressions Impressions Echocardiogram 05/18/17 08:49 Impressions: LVEF 30-40%. Indeterminate diastolic function. Mildly dilated left ventricle. Mild concentric left ventricular hypertrophy. Severely dilated left atrium. Severely dilated right atrium. Mild aortic regurgitation. Mild-moderate mitral regurgitation. Mild pulmonary hypertension. The pericardium appears normal. Left Ventricular Wall Motion: Rest Echo Findings The apex, apical inferior, mid inferior, basal inferior, apical anterior, mid anterior, basal anterior, apical septal, mid inferior septal, basal inferior septal, apical lateral, mid anterior lateral, basal anterior lateral, mid anterior septal, mid inferior lateral, basal anterior septal and basal inferior lateral douglas were hypokinetic. Findings: Study Quality * Technically adequate exam. ECG Findings * Atrial fibrillation. Left Ventricle * LVEF 30-40%. * Indeterminate diastolic function. * Mildly dilated left ventricle. * Mild concentric left ventricular hypertrophy. Right Ventricle * Normal right ventricular structure and function. Left Atrium * Severely dilated left atrium. Right Atrium * Severely dilated right atrium. Interatrial Septum * No evidence of PFO by color Doppler. Aortic Valve * Mild aortic regurgitation. Mitral Valve * Mild-moderate mitral regurgitation. Tricuspid Valve * Moderate tricuspid regurgitation. * Estimated RVSP is 33 mmHg. * Estimated RA pressure is 5 mmHg. * Mild pulmonary hypertension. Pulmonic Valve * Pulmonic valve not well visualized. Aorta * Normally sized aortic root. Pericardium * The pericardium appears normal. IVC * Normal IVC dimensions and inspiratory collapse. - VTE Documentation of Mechanical Device: Intermittent pneumatic compression device Contraindication No Overlap Therapy: Admin of oral Factor Xa Inhibitor Deep Vein Thrombosis/Pulmonary Embolism Present on Admission: No Consult Discharge Plan - Plan Referrals: Boston Godoy MD [Primary Care Provider] -
[2017-05-20] MEDS: Albuterol 2.5 MG/3 ML NEBULIZER IH SCH ×7 (00:42→23:50)
[2017-05-20 05:04] LABS: Hematocrit 43.1 % (35.3-44.9); Hemoglobin 14.2 g/dL (11.5-15.4); Mean Corpuscular HGB Conc 32.9 g/dL (31.6-35.5); Mean Corpuscular Hemoglobin 29.5 pg (28.0-33.3); Mean Corpuscular Volume 89.4 fL (83.0-100.0); Mean Platelet Volume 13.4 fL (9.4-12.4); Platelet Count 154 K/mcL (140-400); Red Blood Count 4.82 M/mcL (3.82-4.97); Red Cell Distribution Width 15.1 % (11.5-14.5)
[2017-05-20 05:12] LABS: Calcium 8.9 mg/dL (8.6-10.3); Potassium 3.5 mEq/L (3.5-5.1)
[2017-05-20] MEDS: Tiotropium 18 MCG inhalation IH SCH (08:04)
[2017-05-20] MEDS: Budesonide/Formoterol 160/4.5 MDI IH SCH ×2 (08:05→20:52)
[2017-05-20] MEDS: Metoprolol XL (24 HR) Succ 25 MG TAB.ER.24H PO SCH (08:47)
[2017-05-20] MEDS: Insulin LISPRO 300 UNITS/3 ML VIAL SQ SCH ×3 (08:48→17:31)
[2017-05-20] MEDS: Apixaban 5 MG TABLET PO SCH ×2 (08:48→20:01)
--- NOTE | 2017-05-20 11:37 | Internal Med Progress Note ---
Date of Encounter: 05/20/17 Time of Encounter: 11:33 - Assessment and plan (1) COPD exacerbation Current Visit: Yes Status: Acute Assessment and plan: continue SoluMedrol 40 mg IVP q12 hrs Continue Albuterol Nebs, Spiriva, and Symbicort Continue Empiric antibiotics (Levaquin) Increased rhonchi on right side, PINK Will obtain CT of chest without contrast Code(s): J44.1 - Chronic obstructive pulmonary disease with (acute) exacerbation (2) Diabetes mellitus Current Visit: No Status: Chronic Assessment and plan: Accu-Cheks with low-dose sliding scale coverage/accuchecks Diabetic cardiac diet Qualifiers: Diabetes mellitus type: type 2 Diabetes mellitus residential insulin use: without tombstone setter use Diabetes mellitus complication status: with unspecified complications Qualified Code(s): E11.8 - Type 2 diabetes mellitus with unspecified complications (3) Atrial fibrillation with RVR Current Visit: Yes Status: Acute Assessment and plan: Cardizem drip discontinued, increase beta evangelista as still tachycardic Continue Eliquis Family reported vaginal spotting in the ER at the daughter at the bedside status and going on for some time and her anticoagulation has been adjusted in the past secondary to the bleeding and they request no further workup at this time. Gynocolgy consult cancelled Hgb stable with no active bleeding (4) Acute on chronic systolic (congestive) heart failure Current Visit: Yes Status: Acute Assessment and plan: IV Lasix changed to 40 mg by mouth twice a day per cardiology decreased to daily with elevated creatine, stooped today with increasing kidney functions Monitor fluid balance Low salt diet and 1500 ml PO fluid restriction Echo reviewed with history of LV EF of 40%, now LVEF 30-40% with indeterminate diastolic function. Mildly dilated left ventricle. Mild concentric left ventricular hypertrophy. Severely dilated left atrium and severely dilated right atrium, mild aortic regurgitation and mild to moderate mitral regurgitation. Mild pulmonary hypertension. The pericardium appears normal. Rest Echo findings with multiple douglas were hypokinetic. Continue Toprol XL 50 mg daily and resume Festus on discharge peripheral edema improved (5) Severe tricuspid regurgitation Current Visit: No Status: Chronic Assessment and plan: Echo reviewed - moderate tricuspid regurgitation and estimated RVSP is 33 mm per Hg. 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 No chest pain is reported with no acute ischemic ECG changes noted. Last heart cath in 2013 demonstrated mild nonobstructive CAD with 90% HERRERA and medical therapy recommended. No heparin drip patient is on Eliquis. Continue for now. Continue aspirin, statin and beta evangelista. Evaluate echo. Cardiology discussed further ischemic evaluation with the patient and the patient's daughter and they do not wish to pursue further invasive testing. cardiology suspects demand ischemia with no cardiac rehabilitation consult warranted. They state if no significant findings on echo will sign off. Code(s): I21.4 - Non-ST elevation (NSTEMI) myocardial infarction (8) Vaginal bleeding Current Visit: No Status: Resolved Assessment and plan: Family reports intermittent vaginal bleeding in patient on Eliquis for AFib stroke prophylaxis that has been ongoing for a long time and has been followed in the past. They do not request any further workup at this time No active bleeding, will discontinue [employer] Press Operator consult Code(s): N93.9 - Abnormal uterine and vaginal bleeding, unspecified (9) DNR (do not resuscitate) discussion Current Visit: Yes Status: Acute Assessment and plan: spoke with daughter and code milton written per family request - Time Spent With Patient Total time spent is greater than 50% in coordination of care (as documented) at patient's floor/unit and/or counseling patient: - Subjective Interval history: Patient sitting up in bed in no distress with daughter at the bedside. She becomes very dyspneic on exertion and the daughter stated even walking to the bathroom brings on increased shortness of breath. - Constitutional Vitals: Temp Pulse Resp BP Pulse Ox 97.5 F L 86 18 125/67 93 05/20/17 07:31 05/20/17 07:31 05/20/17 08:05 05/20/17 07:31 05/20/17 08:05 General appearance: Present: cooperative, A&O X 2, pleasant. Absent: answers questions appropriately - Head Head exam: Present: atraumatic, normocephalic - Eye Eye exam: Present: PERRL, conjuntiva pink, sclera anicteric Pupils: Present: PERRL - Neck Neck exam general surgery: Present: supple, trachea midline. Absent: lymphadenopathy - Respiratory Respiratory exam: Present: rhonchi. Absent: accessory muscle use, rales, wheezes Additional comments: right sided rhonchi - Cardiovascular Cardiovascular exam: Present: irregular rhythm, +S1, +S2. Absent: diastolic murmur, gallop, rubs, systolic murmur - GI/Abdominal GI/Abdominal exam: Present: normal bowel sounds, soft, no peritoneal signs. Absent: distended, tenderness - Extremities Exam Extremities exam: Present: warm, radial pulses palpable and symmetrical. Absent : calf tenderness, cyanotic, pedal edema - Neurological Exam Neurological exam: Present: alert, CN II-XII intact, no focal deficits. Absent : pronater drift, facial droop, speech deficit - Skin Skin exam: Present: dry, intact, normal color, warm Internal Medicine: Result - Labs CBC & Chem 7: 05/20/17 04:25 05/20/17 04:25 Labs: Short CBC 05/20/17 Range/Units 04:25 WBC 14.1 H (4.3-11.1) K/mcL Hgb 14.2 (11.5-15.4) g/dL Hct 43.1 (35.3-44.9) % Plt Count 154 (140-400) K/mcL [facility] 05/20/17 04:25 Sodium 138 Potassium 3.5 Chloride 98 Carbon Dioxide 30 H BUN 43 H Creatinine 1.60 H Glucose 183 H Calcium 8.9 - ABG Interpretation ABG results: PT/INR, D-dimer PT 13.8 Seconds (9.4-12.1) H 05/17/17 09:58 - Impressions Impressions Echocardiogram 05/18/17 08:49 Impressions: LVEF 30-40%. Indeterminate diastolic function. Mildly dilated left ventricle. Mild concentric left ventricular hypertrophy. Severely dilated left atrium. Severely dilated right atrium. Mild aortic regurgitation. Mild-moderate mitral regurgitation. Mild pulmonary hypertension. The pericardium appears normal. Left Ventricular Wall Motion: Rest Echo Findings The apex, apical inferior, mid inferior, basal inferior, apical anterior, mid anterior, basal anterior, apical septal, mid inferior septal, basal inferior septal, apical lateral, mid anterior lateral, basal anterior lateral, mid anterior septal, mid inferior lateral, basal anterior septal and basal inferior lateral douglas were hypokinetic. Findings: Study Quality * Technically adequate exam. ECG Findings * Atrial fibrillation. Left Ventricle * LVEF 30-40%. * Indeterminate diastolic function. * Mildly dilated left ventricle. * Mild concentric left ventricular hypertrophy. Right Ventricle * Normal right ventricular structure and function. Left Atrium * Severely dilated left atrium. Right Atrium * Severely dilated right atrium. Interatrial Septum * No evidence of PFO by color Doppler. Aortic Valve * Mild aortic regurgitation. Mitral Valve * Mild-moderate mitral regurgitation. Tricuspid Valve * Moderate tricuspid regurgitation. * Estimated RVSP is 33 mmHg. * Estimated RA pressure is 5 mmHg. * Mild pulmonary hypertension. Pulmonic Valve * Pulmonic valve not well visualized. Aorta * Normally sized aortic root. Pericardium * The pericardium appears normal. IVC * Normal IVC dimensions and inspiratory collapse. - VTE Documentation of Mechanical Device: Intermittent pneumatic compression device Contraindication No Overlap Therapy: Admin of oral Factor Xa Inhibitor Deep Vein Thrombosis/Pulmonary Embolism Present on Admission: No Consult Discharge Plan - Plan Referrals: Boston Godoy MD [Primary Care Provider] -
[2017-05-20] MEDS ORDERED: Metoprolol XL (24 HR) Succ 25 MG TAB.ER.24H PO ONE (11:52)
[2017-05-20] MEDS ORDERED: MethylPREDNISolone 40 MG/ML VIAL IVP SCH (18:00)
[2017-05-21 01:47] LABS: Calcium 9.1 mg/dL (8.6-10.3); Potassium 4.1 mEq/L (3.5-5.1)
[2017-05-21] MEDS: Albuterol 2.5 MG/3 ML NEBULIZER IH SCH ×3 (03:57→10:59)
[2017-05-21 04:14] LABS: Hemoglobin 14.2 g/dL (11.5-15.4); Red Cell Distribution Width 15.1 % (11.5-14.5)
[2017-05-21 04:16] LABS: Hematocrit 43.5 % (35.3-44.9); Immature Platelets 13.5 % (1.1-6.1); Mean Corpuscular HGB Conc 32.6 g/dL (31.6-35.5); Mean Corpuscular Hemoglobin 29.7 pg (28.0-33.3); Mean Platelet Volume 13.6 fL (9.4-12.4); Red Blood Count 4.78 M/mcL (3.82-4.97)
[2017-05-21] MEDS: Budesonide/Formoterol 160/4.5 MDI IH SCH (07:53)
[2017-05-21] MEDS: Tiotropium 18 MCG inhalation IH SCH (07:53)
[2017-05-21] MEDS ORDERED: predniSONE 20 MG TABLET PO SCH ×2 (08:00)
[2017-05-21] MEDS: Apixaban 5 MG TABLET PO SCH (08:10)
[2017-05-21] MEDS: Insulin LISPRO 300 UNITS/3 ML VIAL SQ SCH ×2 (08:11→12:25)
[2017-05-21] MEDS ORDERED: Metoprolol XL (24 HR) Succ 50 MG TAB.ER.24H PO SCH (09:00)
[2017-05-21] MEDS ORDERED: levoFLOXacin 500 MG TABLET PO SCH (09:00)
--- NOTE | 2017-05-21 09:33 | Discharge Summary ---
- NOTES TO OUTPATIENT PROVIDER Notes to Outpatient Provider: increased toporol to 75 mg daily. f/u with pcp in 5 to 7 days and cardiology as per their service Date of Encounter: 05/21/17 Time of Encounter: 09:30 - Discharge Diagnosis (1) COPD exacerbation Priority: Primary Status: Acute Code(s): J44.1 - Chronic obstructive pulmonary disease with ( acute) exacerbation (2) Diabetes mellitus Priority: Primary Status: Chronic Qualifiers: Diabetes mellitus type: type 2 Diabetes mellitus intermediate frame tender insulin use: without shelter use Diabetes mellitus complication status: with unspecified complications Qualified Code(s): E11.8 - Type 2 diabetes mellitus with unspecified complications (3) Atrial fibrillation with RVR Priority: Primary Status: Acute (4) Acute on chronic systolic (congestive) heart failure Priority: Primary Status: Acute (5) Severe tricuspid regurgitation Priority: Primary Status: Chronic (6) Anticoagulant long-term use Priority: Primary Status: Chronic Code(s): Z79.01 - custodial (current) use of anticoagulants (7) NSTEMI (non-ST elevated myocardial infarction) Priority: Primary Status: Resolved Code(s): I21.4 - Non-ST elevation (NSTEMI) myocardial infarction (8) Vaginal bleeding Priority: Primary Status: Resolved Code(s): N93.9 - Abnormal uterine and vaginal bleeding, unspecified (9) DNR (do not resuscitate) discussion Priority: Primary Status: Acute (10) Cough Priority: Primary Status: Acute Hospital course: Ms. John is a 82 year old female Discharge discussed with: patient, family, nurse, consultant in ergonomics and safety - Time Spent with Patient Total time spent providing and/or coordinating discharge services: Less than 30 minutes - Discharge Medications Prescriptions: Albuterol Neb [AccuNeb] 1.25 mg IH QID 30 Days #120 mls Benzonatate [Tessalon] 200 mg PO TID PRN 7 Days #21 capsule PRN Reason: Cough Lactobac Cmb #3/Fos/Pantethine [Probiotic & Acidophilus Cap] 1 each PO DAILY # 30 capsule Metoprolol XL (24 HR) Succ [Toprol XL] 75 mg PO DAILY 30 Days #45 tab.er.24h predniSONE [PredniSONE] 10 mg PO DAILY #30 tablet Vancomycin Oral Soln [Vancocin] 250 mg PO QID 10 Days #40 udc Home Medications: Apixaban [Eliquis] 5 mg PO BID 09/03/16 [History] Atorvastatin [Lipitor] 40 mg PO HS 09/03/16 [History] Lisinopril [Zestril] 5 mg PO DAILY 09/03/16 [History] Potassium Chloride [Klor-Con 10] 10 meq PO DAILY PRN 09/03/16 [History] Furosemide [Lasix] 20 mg PO DAILY 05/17/17 [History] Glimepiride [Amaryl] 1 mg PO DAILY 05/17/17 [History] Oxygen 2 l IH DAILY 05/17/17 [History] Albuterol Neb [AccuNeb] 1.25 mg IH QID 30 Days #120 mls 05/21/17 [Rx] Benzonatate [Tessalon] 200 mg PO TID PRN 7 Days #21 capsule 05/21/17 [Rx] Lactobac Cmb #3/Fos/Pantethine [Probiotic & Acidophilus Cap] 1 each PO DAILY # 30 capsule 05/21/17 [Rx] Metoprolol XL (24 HR) Succ [Toprol XL] 75 mg PO DAILY 30 Days #45 tab.er.24h 10/30 [Rx] Vancomycin Oral Soln [Vancocin] 250 mg PO QID 10 Days #40 udc 05/21/17 [Rx] predniSONE [PredniSONE] 10 mg PO DAILY #30 tablet 05/21/17 [Rx] Allergies/Adverse Reactions: 3 Allergy/AdvReac Type Severity Reaction Status Date / Time Penicillins Allergy See Verified 09/03/16 16:38 Comments Date of admission: 05/17/17 08:37 Primary care physician: Boston Godoy MD Consults: 05/17/17 09:26 Consult to Cardiology [CONS] Routine Comment: Consulting Provider: Cardiology Lucie Reason for Consult: NSTEMI Time Notified: 09:26 Call Completed: No 05/18/17 08:39 Consult to Nurse Navigator [CONS] Routine Comment: Discharging clinician: Lorenza Salazar Anticipated date of discharge: 05/21/17 - Constitutional Vitals: Temp Pulse Resp BP Pulse Ox 97.7 F 98 16 131/77 91 05/21/17 07:42 05/21/17 07:42 05/21/17 07:49 05/21/17 07:49 05/21/17 07:49 General appearance: Present: cooperative, A&O X 2, pleasant. Absent: answers questions appropriately - Head Head exam: Present: atraumatic, normocephalic - Eye Eye exam: Present: PERRL, conjuntiva pink, sclera anicteric Pupils: Present: PERRL - Neck Neck exam general surgery: Present: supple, trachea midline. Absent: lymphadenopathy - Respiratory Respiratory exam: Present: CTAB. Absent: accessory muscle use, rales, rhonchi, wheezes - Cardiovascular Cardiovascular exam: Present: irregular rhythm, +S1, +S2, tachycardia. Absent: diastolic murmur, gallop, rubs, systolic murmur - GI/Abdominal GI/Abdominal exam: Present: normal bowel sounds, soft, no peritoneal signs. Absent: distended, tenderness - Extremities Exam Extremities exam: Present: warm, radial pulses palpable and symmetrical. Absent : calf tenderness, cyanotic, pedal edema - Neurological Exam Neurological exam: Present: alert, no focal deficits, strengths equal and symetr throughout. Absent: pronater drift, facial droop, speech deficit - Skin Skin exam: Present: dry, intact, normal color, warm - Patient Status Disposition: Home, Self-Care Condition: Fair Functional capacity at discharge: independent ambulation Overall status at discharge: patient is progressing back to baseline - Discharge Instructions Follow Up With: Boston Godoy MD [Primary Care Provider] - 05/29/17 1:20 pm - Diet and Activity Activity: increase activity as tolerated Diet: advance to your usual diet, low fat, low cholesterol, low salt diet - VTE Documentation of Mechanical Device: Intermittent pneumatic compression device Contraindication No Overlap Therapy: Admin of oral Factor Xa Inhibitor Deep Vein Thrombosis/Pulmonary Embolism Present on Admission: No
[2017-05-21 10:59] VITALS: BP 137/86
--- NOTE | 2017-05-21 13:19 | Cardiology Progress Note ---
Date of Encounter: 05/21/17 Time of Encounter: 13:20 Assessment and Plan (1) Atrial fibrillation with RVR Status: Acute H/o atrial fibrillation on eliquis. Initially atrial fibrillation with RVR and placed on cardizem gtt. Appears oral cardizem held at that time and oral dose was not restarted. With low LVEF recommend titrating toprol XL as tolerated. Avg HR over 24 hours was 100 bpm. Increase toprol to 75 mg daily. Goal HR 100 bpm or less. Continue eliquis. Out-pt f/u will be scheduled. Please call with questions. (2) Elevated troponin Status: Acute Per cardiology: -Elevated troponin 0.92, 1.01, 0.43, 0.25 in the setting of atrial fibrillation with RVR, PNA likely secondary to demand ischemia; cannot rule out ACS. -No chest pain reported. No acute ischemic ECG changes noted. -Hx of [facility], EF 40%. Last [facility] 2013 demonstrated mild non-obstructive CAD, 90% OM1--medical therapy recommended. -No heparin gtt, pt on Eliquis, continue for now. Continue asa, statin, BB. -Patient declined invasive evaluation during stay. -Again, suspect demand ischemia, no cardiac rehab consult warranted. -TTE showed EF 35-40%. No significant change from previous. -No further cardiac testing at this time. Discussion w patient/family: The assessment and plan as outlined above was discussed with the patient and/or family members who expressed understanding and agreement. All questions were answered. Thank you for involving us in the care of your patient. Please call with any questions. Subjective Principal diagnosis: PAF, CHF Interval history: Cardiology re-consulted due to poorly controlled afib. Objective Vital Signs, Last 4 Hours Temp Pulse Resp BP Pulse Ox 05/21/17 10:59 16 137/86 912 05/21/17 10:58 97.7 F 94 16 137/86 92 General: Conversant, No Apparent Distress HEENT: Atraumatic, Normocephaly, Mucus Membranes Moist Neck: No JVD, Normal carotid pulses Cardiac: Other (Irregularly irregular) Lungs: Normal Breath Sounds, No Wheeze, Rales, Rhonchi Neuro: Alert and responsive, No focal deficits noted Abdomen: Soft, Non-Tender Skin: No rashes noted on visualized skin Musculoskeletal: No Chest Wall Tenderness Extremities: No Clubbing, No Cyanosis, No Edema, Normal Pulses Results 05/21/17 01:07 05/21/17 01:07 Lab Results 05/21/17 05/21/17 01:07 01:07 WBC 11.9 H Hgb 14.2 Hct 43.5 Plt Count 160 Sodium 138 Potassium 4.1 Chloride 100 Carbon Dioxide 30 H BUN 49 H Creatinine 1.51 H Glucose 236 H Calcium 9.1 - VTE Documentation of Mechanical Device: Intermittent pneumatic compression device Contraindication No Overlap Therapy: Admin of oral Factor Xa Inhibitor Deep Vein Thrombosis/Pulmonary Embolism Present on Admission: No Consult Discharge Plan - Plan Instructions: Benzonatate (By mouth), Metoprolol (By mouth), Albuterol (By breathing), Prednisone (By mouth), Probiotic (By mouth) Referrals: Boston Godoy MD [Primary Care Provider] - 05/29/17 1:20 pm Prescriptions: Albuterol Neb [AccuNeb] 1.25 mg IH QID 30 Days #120 mls Benzonatate [Tessalon] 200 mg PO TID PRN 7 Days #21 capsule PRN Reason: Cough Lactobac Cmb #3/Fos/Pantethine [Probiotic & Acidophilus Cap] 1 each PO DAILY # 30 capsule Metoprolol XL (24 HR) Succ [Toprol XL] 75 mg PO DAILY 30 Days #45 tab.er.24h predniSONE [PredniSONE] 10 mg PO DAILY #30 tablet Vancomycin Oral Soln [Vancocin] 250 mg PO QID 10 Days #40 udc
[2017-05-21] MEDS ORDERED: Metoprolol XL (24 HR) Succ 25 MG TAB.ER.24H PO ONE (14:13)
== END 2017-05-21 15:25 | disposition home or self-care (01) | DRG 280 ==
LOC: 2SOUTHHOLD 05:52 → EMEROO 05:52 → 2SOUTHHOLD 09:30 → 3BNU 14:42
PROVIDERS: ADMIT Internal Medicine; ATTEND Internal Medicine